=== PATIENT | male | born 1990 | race Caucasian/White ===

== ENCOUNTER 2017-07-22 09:26 | Inpatient (IN) | payer MEDICAID ==
[2017-07-22] MEDS ORDERED: Ondansetron 4 MG/2 ML SDV IV PRN (11:01)
[2017-07-22] MEDS ORDERED: Ondansetron 4 MG Tab.DIS PO PRN (11:01)
[2017-07-22] MEDS ORDERED: Sodium Chloride 0.9% 10 ML Syringe FLUSH PRN (11:01)
[2017-07-22] MEDS: methylPREDNISolone Sodium Succinate 125 MG/2 ML SDV IVPUSH SCH ×2 (11:25→19:44)
[2017-07-22] MEDS: Enoxaparin 40 MG/0.4 ML Syringe SUBCUT SCH (11:25)
[2017-07-22 11:42] LABS: CHLORIDE,CL 103 mEq/L (98-106); SODIUM,NA 140 mEq/L (136-145)
[2017-07-22] MEDS: Clindamycin Phosphate in D5W 300 MG in Premix Bag 1 BAG IV SCH ×4 (12:14→18:52)
[2017-07-22] MEDS: carBAMazepine 200 MG Tab PO SCH ×2 (12:18→19:45)
[2017-07-22] MEDS: Ciprofloxacin 0.3% Ophth Soln 2.5 ML Bottle EYERT SCH ×2 (12:39→19:44)
[2017-07-22] MEDS: Acetaminophen 325 MG Tab PO PRN ×2 (16:18→20:15)
[2017-07-22] MEDS ORDERED: Calcium Carbonate/Vitamin D3 1250 MG-200 Unit Tab PO SCH (17:30)
[2017-07-22] MEDS: Ibuprofen 200 MG Tab PO PRN (18:52)
--- NOTE | 2017-07-22 18:53 | EDM.PDOC ---
ED HPI GENERAL MEDICAL PROBLEM - General Chief Complaint: General Stated Complaint: SWOLLEN FACE AND TEMP Time Seen by Provider: 07/22/17 09:35 Source of Information: Reports: Family, Other ([address] [place] [address] nurse) History Limitations: Reports: Language Barrier (patient has developmental disabilities) - History of Present Illness INITIAL COMMENTS - FREE TEXT/NARRATIVE: Patient presents to ER with family and [address] [place] [address] nurse with concerns of redness and swelling to face getting worse. Family relates he was seen by Juanjo Vanegas on Thursday and at that time, he only had lip swelling and mild swelling in the right cheek. Was given an injection and started on prednisone. Patient awoke this am with far more swelling and redness. The lips are larger and now there is significant redness and swelling around his right eye. Patient has not had any breathing difficulties. Has been eating and drinking well. Low grade fevers. Patient does not converse but is alert and attentive. Onset: Gradual Duration: Day(s):, Getting Worse Location: Reports: Face Severity: Moderate Treatments [employer]: Reports: Other Medication(s) Other Treatments [employer]: prednisone - Related Data Allergies Allergy/AdvReac Type Severity Reaction Status Date / Time latex Allergy Cannot Verified 07/22/17 09:42 Remember midazolam [From Versed] Allergy Cannot Verified 07/22/17 09:42 Remember tape Allergy Rash Uncoded 07/22/17 09:42 Home Meds: Home Meds Aloe Vera/Sodium Chloride [[place] Saline Nasal Gel] 1 spray NASBOTH BID PRN [History] Ascorbic Acid [Vitamin C] 250 mg PO DAILY 09/13/16 [History] Calcium Carb & Citrate/Vit D3 [Calcium + D3 ER Tablet] 600 mg PO BID 09/13/16 [ History] Clindamycin Phos/Benzoyl Perox [Clindamycin-Benzoyl Perox 1-5%] 1 applic TOP DAILY PRN 09/13/16 [History] Iron Ps Cmplx/Vit B12/Fa [Ferrex 150 Forte Capsule] 150 mg PO DAILY 09/13/16 [ History] Multivitamin with Minerals [Multiple Vitamin] 1 tab PO DAILY 09/13/16 [History] carBAMazepine [Carbamazepine] 100 mg PO 1200 09/13/16 [History] carBAMazepine [Carbamazepine] 150 mg PO QPM 09/13/16 [History] carBAMazepine [Carbamazepine] 200 mg PO QAM 09/13/16 [History] [place]/Min Oil/Deepa/Wool Alcoh [Eucerin Creme] 1 applic TOP BID 07/22/17 [ History] Julius Med Sinus Rinse 30 ml HEYDI BID 07/22/17 [History] Prednisone [IMW: predniSONE] 40 mg PO DAILY 07/22/17 [History] Past Medical History HEENT History: Reports: Impaired Vision Cardiovascular History: Reports: Other (See Below) Other Cardiovascular History: LYMPHEDEMA OF LOWER EXTREMITIES Neurological History: Reports: Cerebral Palsy, Seizure Psychiatric History: Reports: ADHD, Other (See Below) Other Psychiatric History: JOLEEN-MCDERMID SYNDROME, MODERATE MILD RETARDATION, HIGH PAIN TOLERANCE Endocrine/Metabolic History: Reports: Osteoporosis Social & Family History - Family History Family Medical History: Noncontributory - Tobacco Use Smoking Status *Q: Never Smoker - Caffeine Use Caffeine Use: Reports: Soda - Recreational Drug Use Recreational Drug Use: No ED ROS GENERAL - Review of Systems Review Of Systems: See Below Constitutional: Reports: Fever. Denies: Decreased Appetite HEENT: Reports: Other (fac) Respiratory: Denies: Shortness of Breath, Wheezing Cardiovascular: Denies: Edema Endocrine: Reports: No Symptoms GI/Abdominal: Reports: No Symptoms (Facial lip swelling and redness) Skin: Reports: Erythema ED EXAM, GENERAL - Physical Exam Exam: See Below Exam Limited By: Other (patient cooperative with exam) General Appearance: Alert, No Apparent Distress Ears: Normal External Exam Nose: Normal Inspection, Normal Mucosa, No Blood Throat/Mouth: Normal Inspection, Normal Oropharynx, No Airway Compromise Head: Normocephalic, Facial Swelling, Other (Patient has significant facial swelling on the right, redness to right eye, swelling to upper and lower lid. Angioedema noted.) Respiratory/Chest: No Respiratory Distress, Lungs Clear, Normal Breath Sounds Cardiovascular: Regular Rate, Rhythm GI/Abdominal: Normal Bowel Sounds, Soft, Non-Tender Extremities: Normal Inspection, No Pedal Edema Neurological: Alert Skin Exam: Erythema Course - Vital Signs Last Recorded V/S: Last Vital Signs Temp 99.9 F 07/22/17 12:00 Pulse 95 07/22/17 12:00 Resp 19 07/22/17 12:00 BP 124/69 07/22/17 12:00 Pulse Ox 95 07/22/17 12:00 - Orders/Labs/Meds Orders: Active Orders 24 hr Category Date Time Status Patient Status [ADT] Routine ADT 07/22/17 11:01 Active Oxygen Therapy [RC] .PRN Care 07/22/17 11:01 Active Up With Assistance [RC] .PRN Care 07/22/17 11:01 Active Vital Signs [RC] 0000,0400,0800,1200,1600,2000 Care 07/22/17 11:01 Active Regular Diet [DIET] Diet 07/22/17 Lunch Active CULTURE BLOOD [BC] Stat Lab 07/22/17 11:15 Received CULTURE BLOOD [BC] Stat Lab 07/22/17 11:15 Received Acetaminophen [Tylenol] Med 07/22/17 11:01 Active 650 mg PO Q4H PRN Calcium Carbonate/Vitamin D3 [Calcium Carbonate/Vitamin Med 07/22/17 17:30 Active D 1250 MG-200 Unit] 500 tab PO BIDMEALS Clindamycin Phosphate in D5W [Cleocin in D5W] 300 mg Med 07/22/17 12:00 Active Premix Bag 1 bag IV Q6H Enoxaparin [Lovenox] Med 07/22/17 08:00 Active 40 mg SUBCUT Q24H Iron Polysaccharides Complex [Ferrex 150] Med 07/23/17 08:00 Active 150 mg PO DAILY Multivitamins [Tab-A-Zachery] Med 07/23/17 08:00 Active 1 tab PO DAILY Ondansetron [Zofran ODT] Med 07/22/17 11:01 Active 4 mg PO Q4H PRN Ondansetron [Zofran] Med 07/22/17 11:01 Active 4 mg IV Q4H PRN Sodium Chloride 0.9% [Saline Flush] Med 07/22/17 11:01 Active 10 ml FLUSH ASDIRECTED PRN Vancomycin Pharmacy to Dose [Pharmacy to Dose - Med 07/22/17 11:00 Pending Vancomycin] 1 dose .XX ASDIRECTED carBAMazepine [TEGretol Tab] Med 07/22/17 12:00 Active 100 mg PO 1200 carBAMazepine [TEGretol Tab] Med 07/22/17 20:00 Active 150 mg PO QPM carBAMazepine [TEGretol Tab] Med 07/23/17 08:00 Active 200 mg PO QAM methylPREDNISolone Sod Succ [Solu-MEDROL] Med 07/22/17 08:00 Active 62.5 mg IVPUSH Q12H Blood Culture x2 Reflex Set [OM.PC] Stat Oth 07/22/17 11:01 Ordered Saline Lock Insert [OM.PC] Routine Oth 07/22/17 11:01 Ordered Resuscitation Status Routine Resus Stat 07/22/17 10:33 Ordered Medication Orders Acetaminophen (Tylenol) 650 mg PO Q4H PRN PRN Reason: Pain (Mild 1-3)/fever Last Admin: 07/22/17 16:18 Dose: 650 mg Calcium Carbonate (Calcium Carbonate/Vitamin D 1250 Mg-200 Unit) 500 tab PO BIDMEALS [facility] Carbamazepine (Tegretol Tab) 100 mg PO 1200 [facility] Last Admin: 07/22/17 12:18 Dose: 100 mg Carbamazepine (Tegretol Tab) 150 mg PO QPM [facility] Carbamazepine (Tegretol Tab) 200 mg PO QAM [facility] Ciprofloxacin (Ciloxan 0.3% Ophth Soln) 0 ml EYERT TID [facility] Last Admin: 07/22/17 12:39 Dose: 3 drop Enoxaparin Sodium (Lovenox) 40 mg SUBCUT Q24H [facility] Last Admin: 07/22/17 11:25 Dose: 40 mg Clindamycin Phosphate 300 mg/ (Premix) 50 mls @ 100 mls/hr IV Q6H [facility] Last Admin: 07/22/17 12:14 Dose: 100 mls/hr Vancomycin HCl 1 gm/ Sodium (Chloride) 250 mls @ 167 mls/hr IV Q12H [facility] Ibuprofen (Motrin) 400 mg PO Q6H PRN PRN Reason: Fever Methylprednisolone Sodium Succinate (Solu-Medrol) 62.5 mg IVPUSH Q12H [facility] Last Admin: 07/22/17 11:25 Dose: 62.5 mg Multivitamins/Minerals/Vitamin C (Tab-A-Zachery) 1 tab PO DAILY [facility] Ondansetron HCl (Zofran Odt) 4 mg PO Q4H PRN PRN Reason: nausea, able to take PO Ondansetron HCl (Zofran) 4 mg IV Q4H PRN PRN Reason: Nausea/Vomiting Polysaccharide Iron Complex (Ferrex 150) 150 mg PO DAILY [facility] Sodium Chloride (Saline Flush) 10 ml FLUSH ASDIRECTED PRN PRN Reason: Keep Vein Open Vancomycin HCl (Pharmacy To Dose - Vancomycin) 1 dose .XX ASDIRECTED [facility] Meds: Medications Generic Name Dose Route Start Last Admin Trade Name Freq PRN Reason Stop Dose Admin Acetaminophen 650 mg 07/22/17 11:01 07/22/17 16:18 Tylenol PO 650 mg Q4H PRN Administration Pain (Mild 1-3)/fever Calcium Carbonate 500 tab 07/22/17 17:30 Calcium Carbonate/Vitamin D 1250 Mg-200 Unit PO BIDMEALS [facility] Carbamazepine 100 mg 07/22/17 12:00 07/22/17 12:18 Tegretol Tab PO 100 mg 1200 [facility] Administration Carbamazepine 150 mg 07/22/17 20:00 Tegretol Tab PO QPM [facility] Carbamazepine 200 mg 07/23/17 08:00 Tegretol Tab PO QAM [facility] Ciprofloxacin 0 ml 07/22/17 12:00 07/22/17 12:39 Ciloxan 0.3% Ophth Soln EYERT 3 drop TID [facility] Administration Enoxaparin Sodium 40 mg 07/22/17 08:00 07/22/17 11:25 Lovenox SUBCUT 40 mg Q24H [facility] Administration Clindamycin Phosphate 300 mg/ 50 mls @ 100 mls/hr 07/22/17 12:00 07/22/17 12: 14 Premix IV 100 mls/hr Q6H [facility] Administration Vancomycin HCl 1 gm/ Sodium 250 mls @ 167 mls/hr 07/22/17 20:00 Chloride IV Q12H [facility] Ibuprofen 400 mg 07/22/17 18:25 Motrin PO Q6H PRN Fever Methylprednisolone Sodium Succinate 62.5 mg 07/22/17 08:00 07/22/17 11:25 Solu-Medrol IVPUSH 62.5 mg Q12H [facility] Administration Multivitamins/Minerals/Vitamin C 1 tab 07/23/17 08:00 Tab-A-Zachery PO DAILY [facility] Ondansetron HCl 4 mg 07/22/17 11:01 Zofran Odt PO Q4H PRN nausea, able to take PO Ondansetron HCl 4 mg 07/22/17 11:01 Zofran IV Q4H PRN Nausea/Vomiting Polysaccharide Iron Complex 150 mg 07/23/17 08:00 Ferrex 150 PO DAILY [facility] Sodium Chloride 10 ml 07/22/17 11:01 Saline Flush FLUSH ASDIRECTED PRN Keep Vein Open Vancomycin HCl 1 dose 07/22/17 11:00 Pharmacy To Dose - Vancomycin .XX ASDIRECTED EYAD Discontinued Medications Generic Name Dose Route Start Last Admin Trade Name Freq PRN Reason Stop Dose Admin Vancomycin HCl 1,000 mg/ 250 mls @ 167 mls/hr 07/22/17 11:00 07/22/17 11:25 Sodium Chloride IV 07/22/17 12:29 167 mls/hr ONETIME ONE Administration Departure - Departure Time of Disposition: 11:00 Disposition: Admitted As Inpatient 65 Condition: Fair Clinical Impression: Cellulitis and abscess of face - Discharge Information - Problem List & Annotations (1) Cellulitis and abscess of face SNOMED Code(s): 700900106 Code(s): L03.211 - CELLULITIS OF FACE; L02.01 - CUTANEOUS ABSCESS OF FACE Status: Acute Priority: High Current Visit: Yes - Problem List Review Problem List Initiated/Reviewed/Updated: Yes - My Orders Last 24 Hours: My Active Orders 07/22/17 08:00 Enoxaparin [Lovenox] 40 mg SUBCUT Q24H methylPREDNISolone Sod Succ [Solu-MEDROL] 62.5 mg IVPUSH Q12H 07/22/17 10:33 Resuscitation Status Routine 07/22/17 11:00 Vancomycin Pharmacy to Dose [Pharmacy to Dose - Vancomycin] 1 dose .XX ASDIRECTED 07/22/17 11:01 Patient Status [ADT] Routine Oxygen Therapy [RC] .PRN Up With Assistance [RC] .PRN Vital Signs [RC] 0000,0400,0800,1200,1600,2000 Acetaminophen [Tylenol] 650 mg PO Q4H PRN Ondansetron [Zofran ODT] 4 mg PO Q4H PRN Ondansetron [Zofran] 4 mg IV Q4H PRN Sodium Chloride 0.9% [Saline Flush] 10 ml FLUSH ASDIRECTED PRN Blood Culture x2 Reflex Set [OM.PC] Stat Saline Lock Insert [OM.PC] Routine 07/22/17 11:15 CULTURE BLOOD [BC] Stat CULTURE BLOOD [BC] Stat 07/22/17 12:00 Clindamycin Phosphate in D5W [Cleocin in D5W] 300 mg Premix Bag 1 bag IV Q6H carBAMazepine [TEGretol Tab] 100 mg PO 1200 07/22/17 17:30 Calcium Carbonate/Vitamin D3 [Calcium Carbonate/Vitamin D 1250 MG-200 Unit] 500 tab PO BIDMEALS 07/22/17 20:00 carBAMazepine [TEGretol Tab] 150 mg PO QPM 07/22/17 Lunch Regular Diet [DIET] 07/23/17 08:00 Iron Polysaccharides Complex [Ferrex 150] 150 mg PO DAILY Multivitamins [Tab-A-Zachery] 1 tab PO DAILY carBAMazepine [TEGretol Tab] 200 mg PO QAM - Assessment/Plan Admission H&P: Please use this note as an admission H&P Last 24 Hours: My Active Orders 07/22/17 08:00 Enoxaparin [Lovenox] 40 mg SUBCUT Q24H methylPREDNISolone Sod Succ [Solu-MEDROL] 62.5 mg IVPUSH Q12H 07/22/17 10:33 Resuscitation Status Routine 07/22/17 11:00 Vancomycin Pharmacy to Dose [Pharmacy to Dose - Vancomycin] 1 dose .XX ASDIRECTED 07/22/17 11:01 Patient Status [ADT] Routine Oxygen Therapy [RC] .PRN Up With Assistance [RC] .PRN Vital Signs [RC] 0000,0400,0800,1200,1600,2000 Acetaminophen [Tylenol] 650 mg PO Q4H PRN Ondansetron [Zofran ODT] 4 mg PO Q4H PRN Ondansetron [Zofran] 4 mg IV Q4H PRN Sodium Chloride 0.9% [Saline Flush] 10 ml FLUSH ASDIRECTED PRN Blood Culture x2 Reflex Set [OM.PC] Stat Saline Lock Insert [OM.PC] Routine 07/22/17 11:15 CULTURE BLOOD [BC] Stat CULTURE BLOOD [BC] Stat 07/22/17 12:00 Clindamycin Phosphate in D5W [Cleocin in D5W] 300 mg Premix Bag 1 bag IV Q6H carBAMazepine [TEGretol Tab] 100 mg PO 1200 07/22/17 17:30 Calcium Carbonate/Vitamin D3 [Calcium Carbonate/Vitamin D 1250 MG-200 Unit] 500 tab PO BIDMEALS 07/22/17 20:00 carBAMazepine [TEGretol Tab] 150 mg PO QPM 07/22/17 Lunch Regular Diet [DIET] 07/23/17 08:00 Iron Polysaccharides Complex [Ferrex 150] 150 mg PO DAILY Multivitamins [Tab-A-Zachery] 1 tab PO DAILY carBAMazepine [TEGretol Tab] 200 mg PO QAM Assessment:: Facial cellultis Plan: Patient will be admitted to Acute inpatient for IV antibiotics and steroids. Will obtain lab, blood cultures and a culture from the eye as able. Dr. Yen also in to see patient as well and agrees with plan.
[2017-07-23] MEDS: Clindamycin Phosphate in D5W 300 MG in Premix Bag 1 BAG IV SCH ×10 (00:03→23:41)
[2017-07-23] MEDS: methylPREDNISolone Sodium Succinate 125 MG/2 ML SDV IVPUSH SCH ×2 (07:44→19:51)
[2017-07-23] MEDS: Enoxaparin 40 MG/0.4 ML Syringe SUBCUT SCH (07:44)
[2017-07-23] MEDS: Iron Polysaccharides Complex 150 MG Cap PO SCH (07:45)
[2017-07-23] MEDS: Multivitamin Tab PO SCH (07:45)
[2017-07-23] MEDS: carBAMazepine 200 MG Tab PO SCH ×3 (07:45→19:58)
[2017-07-23] MEDS: Calcium Carbonate/Vitamin D3 1250 MG-200 Unit Tab PO SCH ×2 (07:48→17:35)
[2017-07-23] MEDS: Ciprofloxacin 0.3% Ophth Soln 2.5 ML Bottle EYERT SCH ×3 (07:48→19:56)
[2017-07-23 09:04] LABS: CHLORIDE,CL 104 mEq/L (98-106); SODIUM,NA 141 mEq/L (136-145)
--- NOTE | 2017-07-23 09:12 | PCM.PN ---
- General Info Date of Service: 07/23/17 Admission Dx/Problem (Free Text): Facial Cellulitis Functional Status: Reports: Pain Controlled (does not appear to be in distress) , Tolerating Diet, Ambulating - Review of Systems General: Reports: Fever Pulmonary: Denies: Shortness of Breath Cardiovascular: Denies: Edema Gastrointestinal: Denies: Decreased Appetite Genitourinary: Reports: Incontinence Skin: Reports: Other (redness to right eye much improved.) Neurological: Reports: Other (developmental disability) - Patient Data Vitals - Most Recent: Last Vital Signs Temp 98.0 F 07/23/17 07:46 Pulse 84 07/23/17 07:46 Resp 20 07/23/17 07:46 BP 134/77 07/23/17 07:46 Pulse Ox 100 07/23/17 07:46 Weight - Most Recent: 166 lb I&O - Last 24 Hours: Intake & Output 07/22/17 07/23/17 07/23/17 22:59 06:59 14:59 Intake Total 50 50 Balance 50 50 Lab Results Last 24 Hours: Laboratory Results - last 24 hr 07/22/17 07/23/17 Range/Units 11:15 08:45 WBC 12.2 H (5.0-10.0) 10^3/uL RBC 4.62 (4.50-6.00) 10^6/uL Hgb 13.0 L (14.0-18.0) g/dL Hct 40.3 (40.0-54.0) % MCV 87.2 (82.0-94.0) fL MCH 28.1 (27.0-32.0) pg MCHC 32.3 L (33.0-38.0) g/dL RDW Coeff of Korey 13.5 (11.0-15.0) % Plt Count 213 (150-400) 10^3/uL Neut % (Auto) 81.4 (35-85) % Lymph % (Auto) 9.7 L (10-55) % [place] % (Auto) 8.8 (0-16) % Eos % (Auto) 0 (0-5) % Baso % (Auto) 0.1 (0-3) % Neut # (Auto) 9.93 H (1.80-7.00) 10^3/uL Lymph # (Auto) 1.19 (1.00-4.80) 10^3/uL [place] # (Auto) 1.08 H (0.00-0.80) 10^3/uL Eos # (Auto) 0.00 (0.00-0.45) 10^3/uL Baso # (Auto) 0.01 10^3/uL Sodium 140 (136-145) mEq/L Potassium 4.0 (3.5-5.0) mEq/L Chloride 103 (98-106) mEq/L Carbon Dioxide 30 (21-32) mmol/L BUN 11 (7-18) mg/dL Creatinine 0.9 (0.7-1.3) mg/dL Est Cr Clr Drug Dosing 111.26 mL/min Estimated GFR (MDRD) > 60 (>=60) mL/min Glucose 131 H D (75-99) mg/dL Calcium 9.0 (8.4-10.1) mg/dL Total Bilirubin 0.3 (0.0-1.0) mg/dL AST 16 (15-37) U/L ALT 28 (12-78) U/L Alkaline Phosphatase 102 (46-116) U/L C-Reactive Protein 11.4 H (0.2-0.8) mg/dL Total Protein 7.9 (6.4-8.2) g/dL Albumin 3.8 (3.4-5.0) g/dL Med Orders - Current: Current Medications Acetaminophen (Tylenol) 650 mg PO Q4H PRN PRN Reason: Pain (Mild 1-3)/fever Last Admin: 07/22/17 20:15 Dose: 650 mg Calcium Carbonate (Calcium Carbonate/Vitamin D 1250 Mg-200 Unit) 1 tab PO BIDMEALS [facility] Last Admin: 07/23/17 07:48 Dose: 1 tab Carbamazepine (Tegretol Tab) 100 mg PO 1200 [facility] Last Admin: 07/22/17 12:18 Dose: 100 mg Carbamazepine (Tegretol Tab) 150 mg PO QPM [facility] Last Admin: 07/22/17 19:45 Dose: 150 mg Carbamazepine (Tegretol Tab) 200 mg PO QAM [facility] Last Admin: 07/23/17 07:45 Dose: 200 mg Ciprofloxacin (Ciloxan 0.3% Ophth Soln) 0 ml EYERT TID [facility] Last Admin: 07/23/17 07:48 Dose: 3 drop Enoxaparin Sodium (Lovenox) 40 mg SUBCUT Q24H [facility] Last Admin: 07/23/17 07:44 Dose: 40 mg Clindamycin Phosphate 300 mg/ (Premix) 50 mls @ 100 mls/hr IV Q6H [facility] Last Admin: 07/23/17 05:48 Dose: 100 mls/hr Vancomycin HCl 1 gm/ Sodium (Chloride) 250 mls @ 167 mls/hr IV Q12H [facility] Last Admin: 07/23/17 08:10 Dose: 167 mls/hr Ibuprofen (Motrin) 400 mg PO Q6H PRN PRN Reason: Fever Last Admin: 07/22/17 18:52 Dose: 400 mg Methylprednisolone Sodium Succinate (Solu-Medrol) 62.5 mg IVPUSH Q12H [facility] Last Admin: 07/23/17 07:44 Dose: 62.5 mg Multivitamins/Minerals/Vitamin C (Tab-A-Zachery) 1 tab PO DAILY [facility] Last Admin: 07/23/17 07:45 Dose: 1 tab Ondansetron HCl (Zofran Odt) 4 mg PO Q4H PRN PRN Reason: nausea, able to take PO Ondansetron HCl (Zofran) 4 mg IV Q4H PRN PRN Reason: Nausea/Vomiting Polysaccharide Iron Complex (Ferrex 150) 150 mg PO DAILY [facility] Last Admin: 07/23/17 07:45 Dose: 150 mg Sodium Chloride (Saline Flush) 10 ml FLUSH ASDIRECTED PRN PRN Reason: Keep Vein Open Vancomycin HCl (Pharmacy To Dose - Vancomycin) 1 dose .XX ASDIRECTED [facility] Discontinued Medications Calcium Carbonate (Calcium Carbonate/Vitamin D 1250 Mg-200 Unit) 500 tab PO BIDMEALS [facility] Last Admin: 07/22/17 18:52 Dose: 500 tab Vancomycin HCl 1,000 mg/ (Sodium Chloride) 250 mls @ 167 mls/hr IV ONETIME ONE Stop: 07/22/17 12:29 Last Admin: 07/22/17 11:25 Dose: 167 mls/hr - Exam General: Alert Neck: Supple Lungs: Clear to Auscultation, Normal Respiratory Effort Cardiovascular: Regular Rate, Regular Rhythm GI/Abdominal Exam: Normal Bowel Sounds, Soft, Non-Tender Extremities: Normal Inspection, No Pedal Edema Skin: Other (redness to eye much improved, swelling improved. Still has swelling of upper lip but overall significant improvement from yesterday) Wound/Incisions: Erythema Improving Neurological: No New Focal Deficit Psy/Mental Status: Alert, Normal Affect, Normal Mood - Problem List & Annotations (1) Cellulitis and abscess of face SNOMED Code(s): 565150228 Code(s): L03.211 - CELLULITIS OF FACE; L02.01 - CUTANEOUS ABSCESS OF FACE Status: Acute Priority: High Current Visit: Yes - Problem List Review Problem List Initiated/Reviewed/Updated: Yes - My Orders Last 24 Hours: My Active Orders 07/22/17 12:00 Ciprofloxacin [Ciloxan 0.3% Ophth Soln] See Dose Instructions EYERT TID 07/22/17 18:25 Ibuprofen [Motrin] 400 mg PO Q6H PRN 07/22/17 20:00 Vancomycin 1 gm Sodium Chloride 0.9% [Normal Saline] 250 ml IV Q12H 07/23/17 08:00 Calcium Carbonate/Vitamin D3 [Calcium Carbonate/Vitamin D 1250 MG-200 Unit] 1 tab PO BIDMEALS 07/23/17 08:45 BASIC METABOLIC PANEL,BMP [CHEM] Stat C-REACTIVE PROTEIN [CHEM] Stat 07/24/17 08:00 CREATININE W/GFR [CHEM] Routine VANCOMYCIN TROUGH [CHEM] Timed - Assessment Assessment:: Facial Cellulitis - Plan Plan:: Patient much improved today. Redness and swelling better. Did spike fevers last night of 102.2. Eating well. Ambulating. Has been cooperative. Labs show slight elevation of WBC to 12.2. CRP 11.0. BMP stable. Will continue with IV Vanco and Cleocin, Solu Medrol. Repeat labs in am. Possible discharge back to the correction tomorrow on oral medications.
[2017-07-23] MEDS: Acetaminophen 325 MG Tab PO PRN (19:59)
[2017-07-23] MEDS: Ibuprofen 200 MG Tab PO PRN (23:42)
[2017-07-24] MEDS: Clindamycin Phosphate in D5W 300 MG in Premix Bag 1 BAG IV SCH ×2 (06:22)
[2017-07-24] MEDS: Calcium Carbonate/Vitamin D3 1250 MG-200 Unit Tab PO SCH (07:45)
[2017-07-24] MEDS: Iron Polysaccharides Complex 150 MG Cap PO SCH (07:46)
[2017-07-24] MEDS: carBAMazepine 200 MG Tab PO SCH ×2 (07:46→11:08)
[2017-07-24] MEDS: Ciprofloxacin 0.3% Ophth Soln 2.5 ML Bottle EYERT SCH (07:46)
[2017-07-24] MEDS: Multivitamin Tab PO SCH (07:46)
[2017-07-24] MEDS: Enoxaparin 40 MG/0.4 ML Syringe SUBCUT SCH (07:59)
[2017-07-24] MEDS: methylPREDNISolone Sodium Succinate 125 MG/2 ML SDV IVPUSH SCH (07:59)
[2017-07-24 09:05] VITALS: BP 130/79
--- NOTE | 2017-07-27 08:39 | DISCH ---
ADMISSION DIAGNOSIS: Facial cellulitis. DISCHARGE DIAGNOSIS: FACIAL CELLULITIS. HISTORY: The patient is a 26-year-old male, mentally handicapped who lives in a long term environment. He presented with right-sided facial edema, erythema, in and around the mouth and eye with elevated fevers. Ary Rodriguez evaluated in the emergency room. At that time, his white count was elevated. CRP was over 11 and he was admitted for cellulitis. HOSPITAL COURSE: The patient was given Cleocin and vancomycin. He did spike some temps for the 1st 24 hours but for the most part now, over the last 24 hours, he has been afebrile. Thus far blood cultures are negative as is a culture from some drainage from his right eye. His lab work shows him to have a white count down now to 6.6 and a CRP at admit 11.4, is now at 6.6. He clinically looks well. All of his facial swelling is essentially resolved and I can feel or see no further erythema. We are going to discharge him home on seven more days of oral Cleocin and five more days of low-dose oral prednisone. He will follow up with his primary, Ary Rodriguez in the clinic next week in [place] for a recheck. COMPLICATIONS: None. CONSULTATIONS: None. DISPOSITION: Discharged to home. NOHEMI /[id number]
== END 2017-07-24 11:50 | disposition home or self-care (01) | DRG 603 ==
LOC: CC.ED 09:26 → CC.MS 10:03 → UNDOADMIN 10:03 → CC.MS 11:01
PROVIDERS: ADMIT Physician Assistant Medical; ATTEND Family Medicine
DX: L03.211 Cellulitis of face (principal); L02.01 Cutaneous abscess of face; R50.9 Fever, unspecified; G80.9 Cerebral palsy, unspecified; F90.9 Attention-deficit hyperactivity disorder, unspecified type; Q99.8 Other specified chromosome abnormalities; F71 Moderate intellectual disabilities; Z91.040 Latex allergy status; Z88.8 Allergy status to other drugs, medicaments and biological substances; Z79.899 Other long term (current) drug therapy
CPT/HCPCS: 36415; 80048; 80053; 80202; 82565; 85025; 86140; 87040; 87070; 99282; A9270-GY; J1650; J2930; J3370; J7050

== ENCOUNTER 2017-11-16 18:09 | Inpatient (IN) | payer MEDICAID ==
[2017-11-16] MEDS ORDERED: Ibuprofen 200 MG Tab PO ONE (18:25)
--- NOTE | 2017-11-16 18:31 | EDM.PDOC ---
ED HPI GENERAL MEDICAL PROBLEM - General Chief Complaint: Fever Stated Complaint: FEVER, COUGH, NASAL DRAINAGE Time Seen by Provider: 11/16/17 18:20 Source of Information: Reports: Family, Other (4th [facility] Caregiver) - History of Present Illness INITIAL COMMENTS - FREE TEXT/NARRATIVE: Evan is a 27 year old male mentally handicap young gentleman who presents to the ED with complaints of fever, nasal congestion, and cough. Staff from his long-term report that he has had intermittent fever starting Thursday. They report that this evening they are unable to keep it down with alternating Tylenol and ibuprofen. They report that today his fever got as high as 103 deg F after Tylenol administration. He last had Tylenol at 1630. They report since Thursday he has been taking OTC cold and cough medications without relief. He has had purulent nasal drainage. Cough has been nonproductive. They report he has had a decreased appetite and is not wanting to drink much for fluids. Patent is nonverbal so ROS difficult to obtain. Caregiver denies any obvious abdominal pain, urinary issues, diarrhea, shortness of breath, difficulty breathing. Family does report that he finished a course of antibiotics for an abscessed right eye tooth on 11/09/2017. This was prescribed by his dentist. Onset Date: 11/14/17 Duration: Getting Worse Improves with: Reports: Medication Associated Symptoms: Reports: Cough, Fever/Chills, Weakness. Denies: Confusion , Chest Pain, cough w sputum, Diaphoresis, Headaches, Loss of Appetite, Nausea/ Vomiting, Rash, Seizure, Shortness of Breath, Syncope Treatments VETERINARY BACTERIOLOGIST: Reports: Acetaminophen, NSAIDS, Other Medication(s) ( decongestants) - Related Data Allergies Allergy/AdvReac Type Severity Reaction Status Date / Time latex Allergy Cannot Verified 11/16/17 18:10 Remember midazolam [From Versed] Allergy Cannot Verified 11/16/17 18:10 Remember tape Allergy Rash Uncoded 11/16/17 18:10 Home Meds: Home Meds Aloe Vera/Sodium Chloride [[place] Saline Nasal Gel] 1 spray NASBOTH BID PRN [History] Ascorbic Acid [Vitamin C] 250 mg PO DAILY 09/13/16 [History] Calcium Carb & Citrate/Vit D3 [Calcium + D3 ER Tablet] 600 mg PO BID 09/13/16 [ History] Iron Ps Cmplx/Vit B12/Fa [Ferrex 150 Forte Capsule] 150 mg PO DAILY 09/13/16 [ History] Multivitamin with Minerals [Multiple Vitamin] 1 tab PO DAILY 09/13/16 [History] carBAMazepine [Carbamazepine] 100 mg PO 1200 09/13/16 [History] carBAMazepine [Carbamazepine] 150 mg PO QPM 09/13/16 [History] carBAMazepine [Carbamazepine] 200 mg PO QAM 09/13/16 [History] Julius Med Sinus Rinse 30 ml HEYDI BID 07/22/17 [History] Past Medical History HEENT History: Reports: Impaired Vision Cardiovascular History: Reports: Other (See Below) Other Cardiovascular History: LYMPHEDEMA OF LOWER EXTREMITIES Neurological History: Reports: Cerebral Palsy, Seizure Psychiatric History: Reports: ADHD, Other (See Below) Other Psychiatric History: JOLEEN-MCDERMID SYNDROME, MODERATE MILD RETARDATION, HIGH PAIN TOLERANCE Endocrine/Metabolic History: Reports: Osteoporosis Social & Family History - Family History Family Medical History: Noncontributory - Tobacco Use Smoking Status *Q: Never Smoker - Caffeine Use Caffeine Use: Reports: Soda - Recreational Drug Use Recreational Drug Use: No ED ROS GENERAL - Review of Systems Review Of Systems: See Below Constitutional: Reports: Fever, Weakness, Decreased Appetite HEENT: Reports: Rhinitis, Sinus Problem Respiratory: Reports: Cough. Denies: Wheezing, Sputum GI/Abdominal: Reports: Constipation, Decreased Appetite. Denies: Abdominal Pain , Black Stool, Bloody Stool, Diarrhea, Vomiting : Reports: No Symptoms Skin: Reports: Other (flushed) Neurological: Reports: Pre-Existing Deficit (mentally handicap) Psychiatric: Reports: Anxiety ED EXAM, GENERAL - Physical Exam Exam: See Below Exam Limited By: Altered Mental Status General Appearance: Alert, WD/WN, Anxious, Moderate Distress Eye Exam: Bilateral Eye: PERRL Ears: Normal External Exam, Normal Canal, Hearing Grossly Normal, Normal TMs Nose: Nasal Swelling, Nasal Drainage. No: Nasal Flaring Throat/Mouth: Normal Inspection, Normal Lips, Normal Teeth, Normal Gums, Normal Oropharynx, Normal Voice, No Airway Compromise, Other (does have abscessed R eye tooth) Head: Atraumatic, Normocephalic Neck: Normal Inspection, Supple, Non-Tender, Full Range of Motion Respiratory/Chest: No Respiratory Distress, Lungs Clear, No Accessory Muscle Use Cardiovascular: Normal Peripheral Pulses, Regular Rate, Rhythm, No Edema, No Gallop, No JVD, No Murmur, No Rub GI/Abdominal: Normal Bowel Sounds, Soft, Non-Tender, No Organomegaly, No Distention, No Abnormal Bruit, No Mass Back Exam: Normal Inspection, Full Range of Motion, NT Extremities: Normal Range of Motion, Non-Tender, Normal Capillary Refill, Pedal Edema Neurological: Alert, CN II-XII Intact, Other (mentally handicap, nonverbal) Psychiatric: Anxious, Tearful Skin Exam: Other (flushed) Lymphatic: No Adenopathy Course - Vital Signs Last Recorded V/S: Last Vital Signs Temp 99.6 F 11/17/17 04:00 Pulse 90 11/17/17 04:00 Resp 20 11/17/17 04:00 BP 104/64 11/17/17 04:00 Pulse Ox 98 11/17/17 04:00 - Orders/Labs/Meds Orders: Active Orders 24 hr Category Date Time Status Patient Status [ADT] Routine ADT 11/16/17 20:30 Active Intake and Output [RC] 0630,1830 Care 11/16/17 20:30 Active Oxygen Therapy [RC] .PRN Care 11/16/17 20:30 Active Pulse Oximetry [RC] .PRN Care 11/16/17 20:30 Active RT Aerosol Therapy [RC] .PRN Care 11/16/17 20:30 Active Up With Assistance [RC] .PRN Care 11/16/17 20:30 Active Vital Signs [RC] 0000,0400,0800,1200,1600,2000 Care 11/16/17 20:30 Active Regular Diet [DIET] Diet 11/16/17 Dinner Active Chest 2V [CR] Stat Exams 11/16/17 18:23 Taken BASIC METABOLIC PANEL,BMP [CHEM] AM Lab 11/17/17 05:11 Ordered C-REACTIVE PROTEIN [CHEM] AM Lab 11/17/17 05:11 Ordered CBC WITH AUTO DIFF [HEME] AM Lab 11/17/17 05:11 Ordered CULTURE BLOOD [BC] Stat Lab 11/16/17 06:30 Received CULTURE BLOOD [BC] Stat Lab 11/16/17 06:35 Received Acetaminophen [Tylenol] Med 11/16/17 20:30 Active 650 mg PO Q4H PRN Albuterol/Ipratropium [DuoNeb 3.0-0.5 MG/3 ML] Med 11/16/17 20:30 Active 3 ml NEB Q4H PRN Docusate Sodium [Colace] Med 11/16/17 20:30 Active 100 mg PO BID PRN Ibuprofen [Motrin] Med 11/16/17 20:30 Active 600 mg PO Q6H PRN Magnesium Hydroxide [Milk of Magnesia] Med 11/16/17 20:30 Active 30 ml PO Q12H PRN Ondansetron [Zofran] Med 11/16/17 20:30 Active 4 mg IV Q6H PRN Oseltamivir [Tamiflu] Med 11/16/17 20:30 Active 75 mg PO BID Polyethylene Glycol 3350 [MiraLAX] Med 11/16/17 20:30 Active 17 gm PO DAILY PRN Sodium Chloride 0.9% [Normal Saline] 1,000 ml Med 11/16/17 19:30 Active IV ASDIRECTED Temazepam [Restoril] Med 11/16/17 20:30 Active 15 mg PO BEDTIME PRN carBAMazepine [TEGretol Tab] Med 11/17/17 12:00 Active 100 mg PO DAILY@1200 carBAMazepine [TEGretol Tab] Med 11/16/17 20:45 Active 150 mg PO QPM carBAMazepine [TEGretol Tab] Med 11/17/17 08:00 Active 200 mg PO QAM methylPREDNISolone Sod Succ [Solu-MEDROL] Med 11/16/17 20:00 Active 62.5 mg IVPUSH Q24H Blood Culture x2 Reflex Set [OM.PC] Stat Oth 11/16/17 18:23 Ordered Resuscitation Status Routine Resus Stat 11/16/17 19:27 Ordered Medication Orders Acetaminophen (Tylenol) 650 mg PO Q4H PRN PRN Reason: Pain (Mild 1-3)/fever Albuterol/Ipratropium (Duoneb 3.0-0.5 Mg/3 Ml) 3 ml NEB Q4H PRN PRN Reason: Shortness Of Breath/wheezing Carbamazepine (Tegretol Tab) 100 mg PO DAILY@1200 EYAD Carbamazepine (Tegretol Tab) 150 mg PO QPM EYAD Last Admin: 11/16/17 21:15 Dose: 150 mg Carbamazepine (Tegretol Tab) 200 mg PO QAM EYAD Docusate Sodium (Colace) 100 mg PO BID PRN PRN Reason: Constipation Sodium Chloride (Normal Saline) 1,000 mls @ 100 mls/hr IV ASDIRECTED [facility] Last Admin: 11/17/17 04:29 Dose: 100 mls/hr Infusion: 11/17/17 04:29 Dose: 100 mls/hr Admin: 11/16/17 20:15 Dose: 100 mls/hr Ibuprofen (Motrin) 600 mg PO Q6H PRN PRN Reason: Pain (mild 1-3) Magnesium Hydroxide (Milk Of Magnesia) 30 ml PO Q12H PRN PRN Reason: Constipation Methylprednisolone Sodium Succinate (Solu-Medrol) 62.5 mg IVPUSH Q24H [facility] Last Admin: 11/16/17 21:15 Dose: 62.5 mg Ondansetron HCl (Zofran) 4 mg IV Q6H PRN PRN Reason: Nausea/Vomiting Oseltamivir Phosphate (Tamiflu) 75 mg PO BID [facility] Stop: 11/21/17 20:31 Last Admin: 11/16/17 21:15 Dose: 75 mg Polyethylene Glycol (Miralax) 17 gm PO DAILY PRN PRN Reason: Constipation Temazepam (Restoril) 15 mg PO BEDTIME PRN PRN Reason: Sleep Labs: Laboratory Tests 11/16/17 11/16/17 11/16/17 Range/Units 06:30 06:30 06:35 WBC 4.5 L (5.0-10.0) 10^3/uL RBC 4.62 (4.50-6.00) 10^6/uL Hgb 13.3 L (14.0-18.0) g/dL Hct 38.8 L (40.0-54.0) % MCV 84.0 (82.0-94.0) fL MCH 28.8 (27.0-32.0) pg MCHC 34.3 (33.0-38.0) g/dL RDW Coeff of Korey 13.5 (11.0-15.0) % Plt Count 155 (150-400) 10^3/uL Neut % (Auto) 72.9 (35-85) % Lymph % (Auto) 8.0 L (10-55) % [place] % (Auto) 18.7 H (0-16) % Eos % (Auto) 0.2 (0-5) % Baso % (Auto) 0.2 (0-3) % Neut # (Auto) 3.27 (1.80-7.00) 10^3/uL Lymph # (Auto) 0.36 L (1.00-4.80) 10^3/uL [place] # (Auto) 0.84 H (0.00-0.80) 10^3/uL Eos # (Auto) 0.01 (0.00-0.45) 10^3/uL Baso # (Auto) 0.01 10^3/uL D-Dimer, Quantitative 0.19 (0.00-0.50) Sodium 137 (136-145) mEq/L Potassium 3.4 L (3.5-5.0) mEq/L Chloride 100 (98-106) mEq/L Carbon Dioxide 26 (21-32) mmol/L BUN 14 (7-18) mg/dL Creatinine 0.9 (0.7-1.3) mg/dL Est Cr Clr Drug Dosing 106.30 mL/min Estimated GFR (MDRD) > 60 (>=60) mL/min Glucose 113 H (75-99) mg/dL Calcium 9.0 (8.4-10.1) mg/dL Total Bilirubin 0.4 (0.0-1.0) mg/dL AST 29 (15-37) U/L ALT 32 (12-78) U/L Alkaline Phosphatase 100 (46-116) U/L C-Reactive Protein 17.2 H (0.2-0.8) mg/dL Total Protein 7.1 (6.4-8.2) g/dL Albumin 3.8 (3.4-5.0) g/dL Urine Color (YELLOW) Urine Appearance (CLEAR) Urine pH (4.5-8.0) Ur Specific [place] (1.003-1.020) Urine Protein (NEGATIVE) mg/dL Urine Glucose (UA) (NEGATIVE) mg/dL Urine Ketones (NEGATIVE) mg/dL Urine Occult Blood (NEGATIVE) Urine Nitrite (NEGATIVE) Urine Bilirubin (NEGATIVE) Urine Urobilinogen (0.2-1.0) EU/dL Ur Leukocyte Esterase (NEGATIVE) 11/16/17 Range/Units 19:15 WBC (5.0-10.0) 10^3/uL RBC (4.50-6.00) 10^6/uL Hgb (14.0-18.0) g/dL Hct (40.0-54.0) % MCV (82.0-94.0) fL MCH (27.0-32.0) pg MCHC (33.0-38.0) g/dL RDW Coeff of Korey (11.0-15.0) % Plt Count (150-400) 10^3/uL Neut % (Auto) (35-85) % Lymph % (Auto) (10-55) % [place] % (Auto) (0-16) % Eos % (Auto) (0-5) % Baso % (Auto) (0-3) % Neut # (Auto) (1.80-7.00) 10^3/uL Lymph # (Auto) (1.00-4.80) 10^3/uL [place] # (Auto) (0.00-0.80) 10^3/uL Eos # (Auto) (0.00-0.45) 10^3/uL Baso # (Auto) 10^3/uL D-Dimer, Quantitative (0.00-0.50) Sodium (136-145) mEq/L Potassium (3.5-5.0) mEq/L Chloride (98-106) mEq/L Carbon Dioxide (21-32) mmol/L BUN (7-18) mg/dL Creatinine (0.7-1.3) mg/dL Est Cr Clr Drug Dosing mL/min Estimated GFR (MDRD) (>=60) mL/min Glucose (75-99) mg/dL Calcium (8.4-10.1) mg/dL Total Bilirubin (0.0-1.0) mg/dL AST (15-37) U/L ALT (12-78) U/L Alkaline Phosphatase (46-116) U/L C-Reactive Protein (0.2-0.8) mg/dL Total Protein (6.4-8.2) g/dL Albumin (3.4-5.0) g/dL Urine Color Yellow (YELLOW) Urine Appearance Clear (CLEAR) Urine pH 8.5 H (4.5-8.0) Ur Specific [place] 1.015 (1.003-1.020) Urine Protein 30 H (NEGATIVE) mg/dL Urine Glucose (UA) Negative (NEGATIVE) mg/dL Urine Ketones 80 H (NEGATIVE) mg/dL Urine Occult Blood Negative (NEGATIVE) Urine Nitrite Negative (NEGATIVE) Urine Bilirubin Negative (NEGATIVE) Urine Urobilinogen 0.2 (0.2-1.0) EU/dL Ur Leukocyte Esterase Negative (NEGATIVE) Meds: Medications Generic Name Dose Route Start Last Admin Trade Name Freq PRN Reason Stop Dose Admin Acetaminophen 650 mg 11/16/17 20:30 Tylenol PO Q4H PRN Pain (Mild 1-3)/fever Albuterol/Ipratropium 3 ml 11/16/17 20:30 Duoneb 3.0-0.5 Mg/3 Ml NEB Q4H PRN Shortness Of Breath/wheezing Carbamazepine 100 mg 11/17/17 12:00 Tegretol Tab PO DAILY@1200 EYAD Carbamazepine 150 mg 11/16/17 20:45 11/16/17 21:15 Tegretol Tab PO 150 mg QPM EYAD Administration Carbamazepine 200 mg 11/17/17 08:00 Tegretol Tab PO QAM EYAD Docusate Sodium 100 mg 11/16/17 20:30 Colace PO BID PRN Constipation Sodium Chloride 1,000 mls @ 100 mls/hr 11/16/17 19:30 11/17/17 04:29 Normal Saline IV 100 mls/hr ASDIRECTED EYAD Administration Ibuprofen 600 mg 11/16/17 20:30 Motrin PO Q6H PRN Pain (mild 1-3) Magnesium Hydroxide 30 ml 11/16/17 20:30 Milk Of Magnesia PO Q12H PRN Constipation Methylprednisolone Sodium Succinate 62.5 mg 11/16/17 20:00 11/16/17 21:15 Solu-Medrol IVPUSH 62.5 mg Q24H EYAD Administration Ondansetron HCl 4 mg 11/16/17 20:30 Zofran IV Q6H PRN Nausea/Vomiting Oseltamivir Phosphate 75 mg 11/16/17 20:30 11/16/17 21:15 Tamiflu PO 11/21/17 20:31 75 mg BID EYAD Administration Polyethylene Glycol 17 gm 11/16/17 20:30 Miralax PO DAILY PRN Constipation Temazepam 15 mg 11/16/17 20:30 Restoril PO BEDTIME PRN Sleep Discontinued Medications Generic Name Dose Route Start Last Admin Trade Name Freq PRN Reason Stop Dose Admin Ibuprofen 600 mg 11/16/17 18:25 11/16/17 18:37 Motrin PO 11/16/17 18:26 600 mg ONETIME ONE Administration - Re-Assessments/Exams Free Text/Narrative Re-Assessment/Exam: 11/16/17 18:56 Unable to do influenza screen as test kits are unavailable. Discussed lab and CXR results with patient, long-term staff and grandmother. I do suspect he has influenza given low WBC count,cough and fever. After discussion of discharging home vs. staying in hospital, long-term staff recommend keeping him for IVF as he has been refusing to drink. We will admit to observation under Dr. Yen. Departure - Departure Time of Disposition: 19:22 Disposition: Refer to Observation Condition: Fair Clinical Impression: Influenza - Discharge Information - Problem List & Annotations (1) Influenza SNOMED Code(s): 9837015 Code(s): J11.1 - FLU DUE TO UNIDENTIFIED INFLUENZA VIRUS W OTH RESP MANIFEST Status: Acute Current Visit: Yes (2) Mental handicap SNOMED Code(s): 819467806 Code(s): F79 - UNSPECIFIED INTELLECTUAL DISABILITIES Status: Chronic Current Visit: Yes - Problem List Review Problem List Initiated/Reviewed/Updated: Yes - My Orders Last 24 Hours: My Active Orders 11/16/17 06:30 CULTURE BLOOD [BC] Stat 11/16/17 06:35 CULTURE BLOOD [BC] Stat 11/16/17 18:23 Chest 2V [CR] Stat Blood Culture x2 Reflex Set [OM.PC] Stat 11/16/17 19:27 Resuscitation Status Routine 11/16/17 19:30 Sodium Chloride 0.9% [Normal Saline] 1,000 ml IV ASDIRECTED 11/16/17 20:00 methylPREDNISolone Sod Succ [Solu-MEDROL] 62.5 mg IVPUSH Q24H 11/16/17 20:30 Patient Status [ADT] Routine Intake and Output [RC] 0630,1830 Oxygen Therapy [RC] .PRN Pulse Oximetry [RC] .PRN RT Aerosol Therapy [RC] .PRN Up With Assistance [RC] .PRN Vital Signs [RC] 0000,0400,0800,1200,1600,2000 Acetaminophen [Tylenol] 650 mg PO Q4H PRN Albuterol/Ipratropium [DuoNeb 3.0-0.5 MG/3 ML] 3 ml NEB Q4H PRN Docusate Sodium [Colace] 100 mg PO BID PRN Ibuprofen [Motrin] 600 mg PO Q6H PRN Magnesium Hydroxide [Milk of Magnesia] 30 ml PO Q12H PRN Ondansetron [Zofran] 4 mg IV Q6H PRN Oseltamivir [Tamiflu] 75 mg PO BID Polyethylene Glycol 3350 [MiraLAX] 17 gm PO DAILY PRN Temazepam [Restoril] 15 mg PO BEDTIME PRN 11/16/17 20:45 carBAMazepine [TEGretol Tab] 150 mg PO QPM 11/16/17 Dinner Regular Diet [DIET] 11/17/17 05:11 BASIC METABOLIC PANEL,BMP [CHEM] AM C-REACTIVE PROTEIN [CHEM] AM CBC WITH AUTO DIFF [HEME] AM 11/17/17 08:00 carBAMazepine [TEGretol Tab] 200 mg PO QAM 11/17/17 12:00 carBAMazepine [TEGretol Tab] 100 mg PO DAILY@1200 - Assessment/Plan Admission H&P: Please use this note as an admission H&P Last 24 Hours: My Active Orders 11/16/17 06:30 CULTURE BLOOD [BC] Stat 11/16/17 06:35 CULTURE BLOOD [BC] Stat 11/16/17 18:23 Chest 2V [CR] Stat Blood Culture x2 Reflex Set [OM.PC] Stat 11/16/17 19:27 Resuscitation Status Routine 11/16/17 19:30 Sodium Chloride 0.9% [Normal Saline] 1,000 ml IV ASDIRECTED 11/16/17 20:00 methylPREDNISolone Sod Succ [Solu-MEDROL] 62.5 mg IVPUSH Q24H 11/16/17 20:30 Patient Status [ADT] Routine Intake and Output [RC] 0630,1830 Oxygen Therapy [RC] .PRN Pulse Oximetry [RC] .PRN RT Aerosol Therapy [RC] .PRN Up With Assistance [RC] .PRN Vital Signs [RC] 0000,0400,0800,1200,1600,2000 Acetaminophen [Tylenol] 650 mg PO Q4H PRN Albuterol/Ipratropium [DuoNeb 3.0-0.5 MG/3 ML] 3 ml NEB Q4H PRN Docusate Sodium [Colace] 100 mg PO BID PRN Ibuprofen [Motrin] 600 mg PO Q6H PRN Magnesium Hydroxide [Milk of Magnesia] 30 ml PO Q12H PRN Ondansetron [Zofran] 4 mg IV Q6H PRN Oseltamivir [Tamiflu] 75 mg PO BID Polyethylene Glycol 3350 [MiraLAX] 17 gm PO DAILY PRN Temazepam [Restoril] 15 mg PO BEDTIME PRN 11/16/17 20:45 carBAMazepine [TEGretol Tab] 150 mg PO QPM 11/16/17 Dinner Regular Diet [DIET] 11/17/17 05:11 BASIC METABOLIC PANEL,BMP [CHEM] AM C-REACTIVE PROTEIN [CHEM] AM CBC WITH AUTO DIFF [HEME] AM 11/17/17 08:00 carBAMazepine [TEGretol Tab] 200 mg PO QAM 11/17/17 12:00 carBAMazepine [TEGretol Tab] 100 mg PO DAILY@1200 Assessment:: Influenza- suspected Fever Plan: Will admit for IV hydration as patient is refusing to drink alf staff having difficult time keeping fever down. Will have hospital staff alternate Tylenol and ibuprofen every 3 hours as needed for fever/ discomfort. Admit observation to Dr. Yen See [facility] for admit orders
[2017-11-16 18:55] LABS: CHLORIDE,CL 100 mEq/L (98-106); SODIUM,NA 137 mEq/L (136-145)
[2017-11-16] MEDS: Sodium Chloride 0.9% 1,000 ML IV SCH (20:15)
[2017-11-16] MEDS ORDERED: Docusate Sodium 100 MG Cap PO PRN (20:30)
[2017-11-16] MEDS ORDERED: Ondansetron 4 MG/2 ML SDV IV PRN (20:30)
[2017-11-16] MEDS ORDERED: Albuterol/Ipratropium 3.0-0.5 MG/3 ML Neb Soln NEB PRN (20:30)
[2017-11-16] MEDS ORDERED: Temazepam 15 MG Cap PO PRN (20:30)
[2017-11-16] MEDS ORDERED: Magnesium Hydroxide 400 MG/5 ML Susp 30 ML Cup PO PRN (20:30)
[2017-11-16] MEDS ORDERED: Polyethylene Glycol 3350 Powder 17 GM Packet PO PRN (20:30)
[2017-11-16] MEDS: Oseltamivir 75 MG Cap PO SCH (21:15)
[2017-11-16] MEDS: methylPREDNISolone Sodium Succinate 125 MG/2 ML SDV IVPUSH SCH (21:15)
[2017-11-16] MEDS: CARBAMAZEPINE 200 MG PO SCH (21:15)
[2017-11-17] MEDS: Sodium Chloride 0.9% 1,000 ML IV SCH ×2 (04:29→05:57)
[2017-11-17 08:11] LABS: CHLORIDE,CL 104 mEq/L (98-106); SODIUM,NA 141 mEq/L (136-145)
[2017-11-17] MEDS: NS + KCl 20mEq/L 1,000 ML IV SCH ×2 (08:14→21:57)
[2017-11-17] MEDS: Oseltamivir 75 MG Cap PO SCH ×2 (08:14→19:52)
[2017-11-17] MEDS: Clindamycin Phosphate in D5W 300 MG in Premix Bag 1 BAG IV SCH ×6 (10:40→21:55)
[2017-11-17] MEDS: Acetaminophen 325 MG Tab PO PRN (10:45)
[2017-11-17] MEDS: CARBAMAZEPINE 200 MG PO SCH ×3 (11:35→19:52)
--- NOTE | 2017-11-17 16:01 | PCM.PN ---
- General Info Date of Service: 11/17/17 Admission Dx/Problem (Free Text): Influenza Functional Status: Reports: Tolerating Diet, Ambulating - Review of Systems General: Reports: Fever, Weakness, Other (ROS obtained per nursing staff) HEENT: Reports: No Symptoms Pulmonary: Denies: Shortness of Breath, Cough, Wheezing Cardiovascular: Reports: Edema Gastrointestinal: Reports: Decreased Appetite. Denies: Diarrhea, Nausea, Vomiting Genitourinary: Reports: No Symptoms Skin: Reports: Other (redness and swelling to LLE) Neurological: Reports: Other (patient has history of developmental disability so minimal verbalizations) - Patient Data Vitals - Most Recent: Last Vital Signs Temp 100.2 F 11/17/17 15:50 Pulse 89 11/17/17 15:50 Resp 20 11/17/17 15:50 BP 113/66 11/17/17 15:50 Pulse Ox 99 11/17/17 15:50 Weight - Most Recent: 163 lb 9.6 oz I&O - Last 24 Hours: Intake & Output 11/17/17 11/17/17 11/17/17 06:59 14:59 22:59 Intake Total 970 Balance 970 Lab Results Last 24 Hours: Laboratory Results - last 24 hr 11/17/17 11/17/17 Range/Units 05:11 07:45 WBC 3.3 L (5.0-10.0) 10^3/uL RBC 4.46 L (4.50-6.00) 10^6/uL Hgb 12.6 L (14.0-18.0) g/dL Hct 38.5 L (40.0-54.0) % MCV 86.3 (82.0-94.0) fL MCH 28.3 (27.0-32.0) pg MCHC 32.7 L (33.0-38.0) g/dL RDW Coeff of Korey 13.8 (11.0-15.0) % Plt Count 150 (150-400) 10^3/uL Neut % (Auto) 58.9 (35-85) % Lymph % (Auto) 19.0 (10-55) % [place] % (Auto) 21.8 H (0-16) % Eos % (Auto) 0 (0-5) % Baso % (Auto) 0.3 (0-3) % Neut # (Auto) 1.95 (1.80-7.00) 10^3/uL Lymph # (Auto) 0.63 L (1.00-4.80) 10^3/uL [place] # (Auto) 0.72 (0.00-0.80) 10^3/uL Eos # (Auto) 0.00 (0.00-0.45) 10^3/uL Baso # (Auto) 0.01 10^3/uL Sodium 141 (136-145) mEq/L Potassium 4.1 D (3.5-5.0) mEq/L Chloride 104 (98-106) mEq/L Carbon Dioxide 26 (21-32) mmol/L BUN 15 (7-18) mg/dL Creatinine 0.7 (0.7-1.3) mg/dL Est Cr Clr Drug Dosing 136.67 mL/min Estimated GFR (MDRD) > 60 (>=60) mL/min Glucose 89 (75-99) mg/dL Calcium 8.2 L (8.4-10.1) mg/dL C-Reactive Protein 18.6 H (0.2-0.8) mg/dL Med Orders - Current: Current Medications Acetaminophen (Tylenol) 650 mg PO Q4H PRN PRN Reason: Pain (Mild 1-3)/fever Last Admin: 11/17/17 10:45 Dose: 650 mg Albuterol/Ipratropium (Duoneb 3.0-0.5 Mg/3 Ml) 3 ml NEB Q4H PRN PRN Reason: Shortness Of Breath/wheezing Carbamazepine (Tegretol Tab) 100 mg PO DAILY@1200 [facility] Last Admin: 11/17/17 12:04 Dose: 100 mg Carbamazepine (Tegretol Tab) 150 mg PO QPM [facility] Last Admin: 11/16/17 21:15 Dose: 150 mg Carbamazepine (Tegretol Tab) 200 mg PO QAM [facility] Last Admin: 11/17/17 11:35 Dose: Not Given Docusate Sodium (Colace) 100 mg PO BID PRN PRN Reason: Constipation Potassium Chloride/Sodium Chloride (Normal Saline With 20 Meq Kcl) 1,000 mls @ 75 mls/hr IV ASDIRECTED [facility] Last Admin: 11/17/17 08:14 Dose: 75 mls/hr Clindamycin Phosphate 300 mg/ (Premix) 50 mls @ 100 mls/hr IV Q6H [facility] Last Admin: 11/17/17 10:40 Dose: 100 mls/hr Ibuprofen (Motrin) 600 mg PO Q6H PRN PRN Reason: Pain (mild 1-3) Magnesium Hydroxide (Milk Of Magnesia) 30 ml PO Q12H PRN PRN Reason: Constipation Methylprednisolone Sodium Succinate (Solu-Medrol) 62.5 mg IVPUSH Q24H [facility] Last Admin: 11/16/17 21:15 Dose: 62.5 mg Ondansetron HCl (Zofran) 4 mg IV Q6H PRN PRN Reason: Nausea/Vomiting Oseltamivir Phosphate (Tamiflu) 75 mg PO BID [facility] Stop: 11/21/17 20:31 Last Admin: 11/17/17 08:14 Dose: 75 mg Polyethylene Glycol (Miralax) 17 gm PO DAILY PRN PRN Reason: Constipation Temazepam (Restoril) 15 mg PO BEDTIME PRN PRN Reason: Sleep Discontinued Medications Sodium Chloride (Normal Saline) 1,000 mls @ 100 mls/hr IV ASDIRECTED [facility] Last Admin: 11/17/17 05:57 Dose: 100 mls/hr Ibuprofen (Motrin) 600 mg PO ONETIME ONE Stop: 11/16/17 18:26 Last Admin: 11/16/17 18:37 Dose: 600 mg - Exam General: Alert, Oriented HEENT: Mucous Membr. Moist/[place] Neck: Supple Lungs: Clear to Auscultation, Normal Respiratory Effort Cardiovascular: Regular Rate, Regular Rhythm GI/Abdominal Exam: Normal Bowel Sounds, Soft, Non-Tender Extremities: Other (left ) Skin: Other (erythema noted to LLE, swollen, and very warm to the touch. No open areas noted.) - Problem List & Annotations (1) Cellulitis SNOMED Code(s): 029807554 Code(s): L03.90 - CELLULITIS, UNSPECIFIED Status: Acute Priority: High Current Visit: Yes Qualifiers: Site of cellulitis: extremity Site of cellulitis of extremity: lower extremity Laterality: left Qualified Code(s): L03.116 - Cellulitis of left lower limb (2) Influenza SNOMED Code(s): 8330949 Code(s): J11.1 - FLU DUE TO UNIDENTIFIED INFLUENZA VIRUS W OTH RESP MANIFEST Status: Acute Priority: High Current Visit: Yes - Problem List Review Problem List Initiated/Reviewed/Updated: Yes - My Orders Last 24 Hours: My Active Orders 11/17/17 10:00 Clindamycin Phosphate in D5W [Cleocin in D5W] 300 mg Premix Bag 1 bag IV Q6H - Assessment Assessment:: Questionable influenza Cellulitis of LLE - Plan Plan:: Patient stable today, still running fevers. Lung sounds are clear, minimal cough. Patient does answer yes and will speak in short sentences which is chronic related to his developmental disability. Grandfather relates he does have a history of lymphedema in his legs but he does typically wear HANNA hose and they had been doing well. Today, noted to have significant redness, warmth and swelling to his LLE. Question source of fever. Labs noted to have a low WBC of 3.3, CRP spiked up to 18.6. Continue with IV fluids. Start Cleocin. Treat fever. Possible discharge in next day or 2.
[2017-11-17] MEDS: Ibuprofen 200 MG Tab PO PRN (19:53)
[2017-11-17] MEDS: methylPREDNISolone Sodium Succinate 125 MG/2 ML SDV IVPUSH SCH (19:56)
[2017-11-18] MEDS: Clindamycin Phosphate in D5W 300 MG in Premix Bag 1 BAG IV SCH ×8 (04:11→21:41)
[2017-11-18] MEDS: Oseltamivir 75 MG Cap PO SCH ×2 (09:01→20:08)
[2017-11-18] MEDS: CARBAMAZEPINE 200 MG PO SCH ×4 (09:01→19:19)
[2017-11-18] MEDS: Acetaminophen 325 MG Tab PO PRN ×2 (11:58→20:08)
[2017-11-18] MEDS: Ibuprofen 200 MG Tab PO PRN ×2 (14:23→21:42)
[2017-11-18] MEDS: cefTRIAXone 1 GM Vial IVPUSH SCH (14:29)
[2017-11-18] MEDS: methylPREDNISolone Sodium Succinate 125 MG/2 ML SDV IVPUSH SCH (20:09)
--- NOTE | 2017-11-18 22:23 | PCM.PN ---
- General Info Date of Service: 11/18/17 Admission Dx/Problem (Free Text): Influenza Functional Status: Reports: Pain Controlled, Tolerating Diet - Review of Systems General: Reports: Fever, Weakness. Denies: Fatigue HEENT: Reports: No Symptoms Pulmonary: Denies: Shortness of Breath, Cough, Wheezing Cardiovascular: Reports: Edema. Denies: Chest Pain, Lightheadedness Gastrointestinal: Denies: Abdominal Pain, Nausea, Vomiting Genitourinary: Reports: No Symptoms Skin: Reports: Other (redness to left lower lower leg and left arm) Neurological: Reports: Pre-Existing Deficit - Patient Data Vitals - Most Recent: Last Vital Signs Temp 101.2 F H 11/18/17 21:42 Pulse 81 11/18/17 20:00 Resp 18 11/18/17 20:00 BP 107/63 11/18/17 20:00 Pulse Ox 99 11/18/17 20:00 Weight - Most Recent: 163 lb 9.6 oz I&O - Last 24 Hours: Intake & Output 11/18/17 11/18/17 11/18/17 06:59 14:59 22:59 Intake Total 395 50 650 Balance 395 50 650 Med Orders - Current: Current Medications Acetaminophen (Tylenol) 650 mg PO Q4H PRN PRN Reason: Pain (Mild 1-3)/fever Last Admin: 11/18/17 20:08 Dose: 650 mg Albuterol/Ipratropium (Duoneb 3.0-0.5 Mg/3 Ml) 3 ml NEB Q4H PRN PRN Reason: Shortness Of Breath/wheezing Carbamazepine (Tegretol Tab) 100 mg PO DAILY@1200 [facility] Last Admin: 11/18/17 11:54 Dose: 100 mg Carbamazepine (Tegretol Tab) 150 mg PO QPM [facility] Last Admin: 11/18/17 19:19 Dose: Not Given Carbamazepine (Tegretol Tab) 200 mg PO QAM [facility] Last Admin: 11/18/17 09:01 Dose: 200 mg Ceftriaxone Sodium (Rocephin) 1 gm IVPUSH DAILY@1200 [facility] Last Admin: 11/18/17 14:29 Dose: 1 gm Docusate Sodium (Colace) 100 mg PO BID PRN PRN Reason: Constipation Clindamycin Phosphate 300 mg/ (Premix) 50 mls @ 100 mls/hr IV Q6H [facility] Last Admin: 11/18/17 21:41 Dose: 100 mls/hr Ibuprofen (Motrin) 600 mg PO Q6H PRN PRN Reason: Pain (mild 1-3) Last Admin: 11/18/17 21:42 Dose: 600 mg Magnesium Hydroxide (Milk Of Magnesia) 30 ml PO Q12H PRN PRN Reason: Constipation Methylprednisolone Sodium Succinate (Solu-Medrol) 62.5 mg IVPUSH Q24H [facility] Last Admin: 11/18/17 20:09 Dose: 62.5 mg Ondansetron HCl (Zofran) 4 mg IV Q6H PRN PRN Reason: Nausea/Vomiting Oseltamivir Phosphate (Tamiflu) 75 mg PO BID [facility] Stop: 11/21/17 20:31 Last Admin: 11/18/17 20:08 Dose: 75 mg Polyethylene Glycol (Miralax) 17 gm PO DAILY PRN PRN Reason: Constipation Temazepam (Restoril) 15 mg PO BEDTIME PRN PRN Reason: Sleep Discontinued Medications Sodium Chloride (Normal Saline) 1,000 mls @ 100 mls/hr IV ASDIRECTED [facility] Last Admin: 11/17/17 05:57 Dose: 100 mls/hr Potassium Chloride/Sodium Chloride (Normal Saline With 20 Meq Kcl) 1,000 mls @ 75 mls/hr IV ASDIRECTED [facility] Last Admin: 11/17/17 21:57 Dose: 75 mls/hr Ibuprofen (Motrin) 600 mg PO ONETIME ONE Stop: 11/16/17 18:26 Last Admin: 11/16/17 18:37 Dose: 600 mg - Exam General: Alert, Cooperative, No Acute Distress HEENT: Mucous Membr. Moist/[place] Neck: Supple Lungs: Clear to Auscultation, Normal Respiratory Effort Cardiovascular: Regular Rate, Regular Rhythm GI/Abdominal Exam: Normal Bowel Sounds, Soft, Non-Tender Extremities: Pedal Edema (2+ LLE, 1+ RLE), Increased Warmth (increased warmth to LLE, light red in color) Neurological: No New Focal Deficit Psy/Mental Status: Alert - Problem List & Annotations (1) Cellulitis SNOMED Code(s): 692666278 Code(s): L03.90 - CELLULITIS, UNSPECIFIED Status: Acute Priority: High Current Visit: Yes Qualifiers: Site of cellulitis: extremity Site of cellulitis of extremity: lower extremity Laterality: left Qualified Code(s): L03.116 - Cellulitis of left lower limb (2) Influenza SNOMED Code(s): 8849783 Code(s): J11.1 - FLU DUE TO UNIDENTIFIED INFLUENZA VIRUS W OTH RESP MANIFEST Status: Acute Priority: High Current Visit: Yes - Problem List Review Problem List Initiated/Reviewed/Updated: Yes - My Orders Last 24 Hours: My Active Orders 11/18/17 13:00 cefTRIAXone [Rocephin] 1 gm IVPUSH DAILY@1200 - Assessment Assessment:: Questionable influenza Cellulitis of LLE - Plan Plan:: Patient stable today, still running fevers. Lung sounds are clear, minimal cough. Patient does answer yes and will speak in short sentences which is chronic related to his developmental disability. Grandfather relates he does have a history of lymphedema in his legs but he does typically wear HANNA hose and they had been doing well. Today, noted to have significant redness, warmth and swelling to his LLE. Question source of fever. Labs noted to have a low WBC of 3.3, CRP spiked up to 18.6. Continue with IV fluids. Start Cleocin. Treat fever. Possible discharge in next day or 2. 11-18-2017 Patient continues to run fevers, spiked to 102 last evening. Appears to be in no acute distress. Did tolerate full breakfast this am. No change in neurological status. LLE continues to be very warm to the touch, edema noted. Mild redness. Left upper arm also noted to be red. Blood cultures negative. Continue with IV Cleocin, will add Rocephin. Repeat labs in am. IV fluids stopped as tolerating oral intake well. Possible discharge home tomorrow.
[2017-11-19] MEDS: Clindamycin Phosphate in D5W 300 MG in Premix Bag 1 BAG IV SCH ×8 (04:15→22:00)
[2017-11-19 07:49] LABS: CHLORIDE,CL 107 mEq/L (98-106); SODIUM,NA 145 mEq/L (136-145)
[2017-11-19] MEDS: Oseltamivir 75 MG Cap PO SCH ×2 (07:52→20:13)
[2017-11-19] MEDS: CARBAMAZEPINE 200 MG PO SCH ×2 (07:53→11:37)
[2017-11-19] MEDS: Acetaminophen 325 MG Tab PO PRN ×3 (09:41→20:17)
[2017-11-19] MEDS: cefTRIAXone 1 GM Vial IVPUSH SCH (11:37)
--- NOTE | 2017-11-19 12:14 | PCM.PN ---
- General Info Date of Service: 11/19/17 Admission Dx/Problem (Free Text): Influenza Functional Status: Reports: Pain Controlled, Tolerating Diet. Denies: Ambulating - Review of Systems General: Reports: Fever. Denies: Weakness, Fatigue HEENT: Reports: Rhinitis Pulmonary: Denies: Shortness of Breath, Cough, Sputum Cardiovascular: Denies: Chest Pain, Edema, Lightheadedness Gastrointestinal: Reports: Decreased Appetite. Denies: Abdominal Pain, Nausea, Vomiting Genitourinary: Reports: No Symptoms Musculoskeletal: Reports: No Symptoms Skin: Reports: No Symptoms Neurological: Reports: Pre-Existing Deficit - Patient Data Vitals - Most Recent: Last Vital Signs Temp 98.8 F 11/19/17 11:48 Pulse 82 11/19/17 11:48 Resp 18 11/19/17 11:48 BP 108/53 L 11/19/17 11:48 Pulse Ox 96 11/19/17 11:48 Weight - Most Recent: 163 lb 9.6 oz I&O - Last 24 Hours: Intake & Output 11/18/17 11/19/17 11/19/17 22:59 06:59 14:59 Intake Total 700 545 Balance 700 545 Lab Results Last 24 Hours: Laboratory Results - last 24 hr 11/19/17 11/19/17 Range/Units 07:15 07:15 WBC 7.5 (5.0-10.0) 10^3/uL RBC 4.77 (4.50-6.00) 10^6/uL Hgb 13.6 L (14.0-18.0) g/dL Hct 41.1 (40.0-54.0) % MCV 86.2 (82.0-94.0) fL MCH 28.5 (27.0-32.0) pg MCHC 33.1 (33.0-38.0) g/dL RDW Coeff of [place] 14.0 (11.0-15.0) % Plt Count 178 (150-400) 10^3/uL Neut % (Auto) 77.2 (35-85) % Lymph % (Auto) 10.7 (10-55) % [place] % (Auto) 12.1 (0-16) % Eos % (Auto) 0 (0-5) % Baso % (Auto) 0 (0-3) % Neut # (Auto) 5.82 (1.80-7.00) 10^3/uL Lymph # (Auto) 0.81 L (1.00-4.80) 10^3/uL [place] # (Auto) 0.91 H (0.00-0.80) 10^3/uL Eos # (Auto) 0.00 (0.00-0.45) 10^3/uL Baso # (Auto) 0.00 10^3/uL Sodium 145 (136-145) mEq/L Potassium 4.1 (3.5-5.0) mEq/L Chloride 107 H (98-106) mEq/L Carbon Dioxide 29 (21-32) mmol/L BUN 14 (7-18) mg/dL Creatinine 0.6 L (0.7-1.3) mg/dL Est Cr Clr Drug Dosing 159.44 mL/min Estimated GFR (MDRD) > 60 (>=60) mL/min Glucose 120 H D (75-99) mg/dL Calcium 8.7 (8.4-10.1) mg/dL C-Reactive Protein 11.4 H (0.2-0.8) mg/dL Med Orders - Current: Current Medications Acetaminophen (Tylenol) 650 mg PO Q4H PRN PRN Reason: Pain (Mild 1-3)/fever Last Admin: 11/19/17 09:41 Dose: 650 mg Albuterol/Ipratropium (Duoneb 3.0-0.5 Mg/3 Ml) 3 ml NEB Q4H PRN PRN Reason: Shortness Of Breath/wheezing Carbamazepine (Tegretol Tab) 100 mg PO DAILY@1200 [facility] Last Admin: 11/19/17 11:37 Dose: 100 mg Carbamazepine (Tegretol Tab) 200 mg PO QAM [facility] Last Admin: 11/19/17 07:53 Dose: 200 mg Carbamazepine (Tegretol Tab) 150 mg PO DAILY@1600 [facility] Ceftriaxone Sodium (Rocephin) 1 gm IVPUSH DAILY@1200 [facility] Last Admin: 11/19/17 11:37 Dose: 1 gm Docusate Sodium (Colace) 100 mg PO BID PRN PRN Reason: Constipation Clindamycin Phosphate 300 mg/ (Premix) 50 mls @ 100 mls/hr IV Q6H [facility] Last Admin: 11/19/17 09:42 Dose: 100 mls/hr Ibuprofen (Motrin) 600 mg PO Q6H PRN PRN Reason: Pain (mild 1-3) Last Admin: 11/18/17 21:42 Dose: 600 mg Magnesium Hydroxide (Milk Of Magnesia) 30 ml PO Q12H PRN PRN Reason: Constipation Methylprednisolone Sodium Succinate (Solu-Medrol) 62.5 mg IVPUSH Q24H [facility] Last Admin: 11/18/17 20:09 Dose: 62.5 mg Ondansetron HCl (Zofran) 4 mg IV Q6H PRN PRN Reason: Nausea/Vomiting Oseltamivir Phosphate (Tamiflu) 75 mg PO BID [facility] Stop: 11/21/17 20:31 Last Admin: 11/19/17 07:52 Dose: 75 mg Polyethylene Glycol (Miralax) 17 gm PO DAILY PRN PRN Reason: Constipation Temazepam (Restoril) 15 mg PO BEDTIME PRN PRN Reason: Sleep Discontinued Medications Carbamazepine (Tegretol Tab) 150 mg PO QPM [facility] Last Admin: 11/18/17 19:19 Dose: Not Given Sodium Chloride (Normal Saline) 1,000 mls @ 100 mls/hr IV ASDIRECTED [facility] Last Admin: 11/17/17 05:57 Dose: 100 mls/hr Potassium Chloride/Sodium Chloride (Normal Saline With 20 Meq Kcl) 1,000 mls @ 75 mls/hr IV ASDIRECTED [facility] Last Admin: 11/17/17 21:57 Dose: 75 mls/hr Ibuprofen (Motrin) 600 mg PO ONETIME ONE Stop: 11/16/17 18:26 Last Admin: 11/16/17 18:37 Dose: 600 mg - Exam General: Alert, Cooperative Neck: Supple Lungs: Clear to Auscultation, Normal Respiratory Effort Cardiovascular: Regular Rate, Regular Rhythm GI/Abdominal Exam: Normal Bowel Sounds, Soft, Non-Tender Extremities: Normal Inspection, Pedal Edema, Increased Warmth (LLE), Redness Neurological: No New Focal Deficit - Problem List & Annotations (1) Cellulitis SNOMED Code(s): 631407613 Code(s): L03.90 - CELLULITIS, UNSPECIFIED Status: Acute Priority: High Current Visit: Yes Qualifiers: Site of cellulitis: extremity Site of cellulitis of extremity: lower extremity Laterality: left Qualified Code(s): L03.116 - Cellulitis of left lower limb (2) Influenza SNOMED Code(s): 4488646 Code(s): J11.1 - FLU DUE TO UNIDENTIFIED INFLUENZA VIRUS W OTH RESP MANIFEST Status: Acute Priority: High Current Visit: Yes - Problem List Review Problem List Initiated/Reviewed/Updated: Yes - My Orders Last 24 Hours: My Active Orders 11/18/17 13:00 cefTRIAXone [Rocephin] 1 gm IVPUSH DAILY@1200 - Assessment Assessment:: Questionable influenza Cellulitis of LLE - Plan Plan:: Patient stable today, still running fevers. Lung sounds are clear, minimal cough. Patient does answer yes and will speak in short sentences which is chronic related to his developmental disability. Grandfather relates he does have a history of lymphedema in his legs but he does typically wear HANNA hose and they had been doing well. Today, noted to have significant redness, warmth and swelling to his LLE. Question source of fever. Labs noted to have a low WBC of 3.3, CRP spiked up to 18.6. Continue with IV fluids. Start Cleocin. Treat fever. Possible discharge in next day or 2. 11-18-2017 Patient continues to run fevers, spiked to 102 last evening. Appears to be in no acute distress. Did tolerate full breakfast this am. No change in neurological status. LLE continues to be very warm to the touch, edema noted. Mild redness. Left upper arm also noted to be red. Blood cultures negative. Continue with IV Cleocin, will add Rocephin. Repeat labs in am. IV fluids stopped as tolerating oral intake well. Possible discharge home tomorrow. 11-19-2017 Patient continues to run a fever, 100.3 this am. Not eating well today. More resistant to exam. LLE continues to be very warm to the touch, mild red in nature, swollen. Does not appear to be tender. Lung sounds are clear. Labs this am show a WBC of 7.5, CRP improving, now down to 11.4. Will continue with IV Cleocin for coverage with concerns for cellulitis. Discharge home tomorrow if afebrile.
[2017-11-19] MEDS ORDERED: CARBAMAZEPINE 200 MG PO SCH (16:00)
[2017-11-19] MEDS: Ibuprofen 200 MG Tab PO PRN (16:59)
[2017-11-19] MEDS: methylPREDNISolone Sodium Succinate 125 MG/2 ML SDV IVPUSH SCH (20:13)
[2017-11-20] MEDS: Clindamycin Phosphate in D5W 300 MG in Premix Bag 1 BAG IV SCH ×4 (03:35→09:11)
[2017-11-20] MEDS: CARBAMAZEPINE 200 MG PO SCH ×2 (09:10→13:02)
[2017-11-20] MEDS: Oseltamivir 75 MG Cap PO SCH (09:11)
[2017-11-20 11:46] VITALS: BP 109/73
[2017-11-20] MEDS: cefTRIAXone 1 GM Vial IVPUSH SCH (13:03)
--- NOTE | 2017-11-22 20:21 | PCM.DCSUM1 ---
Discharge Summary - Hospital Course Free Text/Narrative:: Patient admitted by Veronique from ER with high temps, cough and concerns of influenza. Had been running fevers up to 103 that were not responding as well to tylenol and ibuprofen on day of discharge. Initial work up in the ER did show a viral picture with a WBC of 4.5, CRP 17.2, chest xray clear. Unable to test for influenza due to shortage of kits in the state. No taking fluids well. Admitted for IV fluids, nebs and tamiflu. Blood cultures done. - Discharge Data Discharge Date: 11/20/17 Discharge Disposition: Home, Self-Care 01 Condition: Good - Discharge Diagnosis/Problem(s) (1) Cellulitis SNOMED Code(s): 057071863 ICD Code: L03.90 - CELLULITIS, UNSPECIFIED Status: Acute Priority: High Qualifiers: Site of cellulitis: extremity Site of cellulitis of extremity: lower extremity Laterality: left Qualified Code(s): L03.116 - Cellulitis of left lower limb (2) Influenza SNOMED Code(s): 4807053 ICD Code: J11.1 - FLU DUE TO UNIDENTIFIED INFLUENZA VIRUS W OTH RESP MANIFEST Status: Acute Priority: High - Patient Summary/Data Complications: none Consults: Consultations 11/19/17 14:39 Consult to Physical Therapy [PT Evaluation and Treatment] [CONS] Routine Hospital Course: Patient had slow improvement of overall status. He continued to run fevers for several days. He did not have shortness of breath or much of a change in respiratory status. On day 1 after admit, patient was noted to have increased warmth, redness and swelling of LLE which did improve over the days of inpatient treatment. IV Cleocin was added on day 1, Rocephin eventually added due to ongoing fevers. Patient appetite did improve. Did start to become more active, ambulated well with PT on day of discharge. Afebrile for 24 hours. WBC did remain stable through stay. CRP did spike up to 18.6 with improvement down to 9.7 by discharge. - Patient Instructions Diet: Usual Diet as Tolerated Activity: As Tolerated - Discharge Plan Prescriptions/Med Rec: Cefuroxime Axetil [Cefuroxime] 250 mg PO BID #14 tablet Home Medications: Home Meds Aloe Vera/Sodium Chloride [[place] Saline Nasal Gel] 1 spray NASBOTH BID PRN 12/17/ 16 [History] Ascorbic Acid [Vitamin C] 250 mg PO DAILY 09/13/16 [History] Calcium Carb & Citrate/Vit D3 [Calcium + D3 ER Tablet] 600 mg PO BID 09/13/16 [ History] Iron Ps Cmplx/Vit B12/Fa [Ferrex 150 Forte Capsule] 150 mg PO DAILY 09/13/16 [ History] Multivitamin with Minerals [Multiple Vitamin] 1 tab PO DAILY 09/13/16 [History] carBAMazepine [Carbamazepine] 100 mg PO 1200 09/13/16 [History] carBAMazepine [Carbamazepine] 150 mg PO QPM 09/13/16 [History] carBAMazepine [Carbamazepine] 200 mg PO QAM 09/13/16 [History] Julius Med Sinus Rinse 30 ml [facility]YDI BID 07/22/17 [History] Cefuroxime Axetil [Cefuroxime] 250 mg PO BID #14 tablet 11/20/17 [Rx] Forms: ED Department Discharge Referrals: Ventura Vanegas PA-C [Family Provider] - (Follow up in 7 days for hospital recheck) - Discharge Summary/Plan Comment DC Time >30 min.: No Discharge Summary/Plan Comment: Discharge back to the retirement. Continue Ceftin 250 mg BID for 7 days. Follow up with Juanjo Vanegas in a week. - General Info Date of Service: 11/20/17 Admission Dx/Problem (Free Text: Influenza Functional Status: Reports: Pain Controlled, Tolerating Diet, Ambulating - Review of Systems General: Denies: Fever, Weakness, Fatigue, Malaise HEENT: Reports: No Symptoms Pulmonary: Denies: Shortness of Breath, Cough Gastrointestinal: Denies: Abdominal Pain, Nausea, Vomiting Neurological: Reports: Pre-Existing Deficit - Patient Data Vitals - Most Recent: Last Vital Signs Temp 98.1 F 11/20/17 11:46 Pulse 77 11/20/17 11:46 Resp 18 11/20/17 11:46 BP 109/73 11/20/17 11:46 Pulse Ox 100 11/20/17 11:46 Weight - Most Recent: 163 lb 9.6 oz Med Orders - Current: Current Medications Discontinued Medications Acetaminophen (Tylenol) 650 mg PO Q4H PRN PRN Reason: Pain (Mild 1-3)/fever Last Admin: 11/19/17 20:17 Dose: 650 mg Albuterol/Ipratropium (Duoneb 3.0-0.5 Mg/3 Ml) 3 ml NEB Q4H PRN PRN Reason: Shortness Of Breath/wheezing Carbamazepine (Tegretol Tab) 100 mg PO DAILY@1200 [facility] Last Admin: 11/20/17 13:02 Dose: 100 mg Carbamazepine (Tegretol Tab) 150 mg PO QPM [facility] Last Admin: 11/18/17 19:19 Dose: Not Given Carbamazepine (Tegretol Tab) 200 mg PO QAM [facility] Last Admin: 11/20/17 09:10 Dose: 200 mg Carbamazepine (Tegretol Tab) 150 mg PO DAILY@1600 [facility] Last Admin: 11/19/17 16:51 Dose: 150 mg Ceftriaxone Sodium (Rocephin) 1 gm IVPUSH DAILY@1200 [facility] Last Admin: 11/20/17 13:03 Dose: 1 gm Docusate Sodium (Colace) 100 mg PO BID PRN PRN Reason: Constipation Sodium Chloride (Normal Saline) 1,000 mls @ 100 mls/hr IV ASDIRECTED [facility] Last Admin: 11/17/17 05:57 Dose: 100 mls/hr Potassium Chloride/Sodium Chloride (Normal Saline With 20 Meq Kcl) 1,000 mls @ 75 mls/hr IV ASDIRECTED [facility] Last Admin: 11/17/17 21:57 Dose: 75 mls/hr Clindamycin Phosphate 300 mg/ (Premix) 50 mls @ 100 mls/hr IV Q6H [facility] Last Admin: 11/20/17 09:11 Dose: 100 mls/hr Ibuprofen (Motrin) 600 mg PO ONETIME ONE Stop: 11/16/17 18:26 Last Admin: 11/16/17 18:37 Dose: 600 mg Ibuprofen (Motrin) 600 mg PO Q6H PRN PRN Reason: Pain (mild 1-3) Last Admin: 11/19/17 16:59 Dose: 600 mg Magnesium Hydroxide (Milk Of Magnesia) 30 ml PO Q12H PRN PRN Reason: Constipation Methylprednisolone Sodium Succinate (Solu-Medrol) 62.5 mg IVPUSH Q24H [facility] Last Admin: 11/19/17 20:13 Dose: 62.5 mg Ondansetron HCl (Zofran) 4 mg IV Q6H PRN PRN Reason: Nausea/Vomiting Oseltamivir Phosphate (Tamiflu) 75 mg PO BID [facility] Stop: 11/21/17 20:31 Last Admin: 11/20/17 09:11 Dose: 75 mg Polyethylene Glycol (Miralax) 17 gm PO DAILY PRN PRN Reason: Constipation Temazepam (Restoril) 15 mg PO BEDTIME PRN PRN Reason: Sleep - Exam General: Reports: Alert, Cooperative HEENT: Reports: Mucous Membr. Moist/[place] Neck: Reports: Supple Lungs: Reports: Clear to Auscultation, Normal Respiratory Effort Cardiovascular: Reports: Regular Rate, Regular Rhythm GI/Abdominal Exam: Normal Bowel Sounds, Soft, Non-Tender Extremities: Pedal Edema. No: Increased Warmth, Redness Skin: Reports: Warm, Dry Neurological: Reports: No New Focal Deficit *Q Meaningful Use (DIS) - VTE *Q VTE Criteria *Q: - Stroke *Q Stroke Criteria *Q: - AMI *Q AMI Criteria *Q:
== END 2017-11-20 14:00 | disposition home or self-care (01) | DRG 153 ==
LOC: CC.ED 18:09 → CC.MS 19:35 → UNDOADMOB 19:35 → INTOOBSV 20:30 → UNDOADMOB 20:30 → OBSVTOIN 20:30 → CC.MS 20:30 → INTOOBSV 11-18 08:56 → UNDOADMOB 11-18 08:56 → OBSVTOIN 11-18 08:56
PROVIDERS: ADMIT Nurse Practitioner Family; ATTEND Family Medicine
DX: J11.1 Influenza due to unidentified influenza virus with other respiratory manifestations (principal); L03.116 Cellulitis of left lower limb; F90.9 Attention-deficit hyperactivity disorder, unspecified type; F70 Mild intellectual disabilities; Q99.8 Other specified chromosome abnormalities; G80.9 Cerebral palsy, unspecified; Z91.040 Latex allergy status; Z88.8 Allergy status to other drugs, medicaments and biological substances; Z79.899 Other long term (current) drug therapy
CPT/HCPCS: 36415; 51701; 71046; 80048; 80053; 81003; 85025; 85379; 86140; 87040; 93005; 96361; 96365; 96366; 96375; 96376; 99284; A9270-GY; G0378; J0696; J2930; J3480; J7030

== ENCOUNTER 2018-12-13 19:40 | Emergency (ER) | payer MEDICAID ==
[2018-12-13 19:56] VITALS: BP 154/84
[2018-12-13 20:18] LABS: CHLORIDE,CL 103 mEq/L (98-106); SODIUM,NA 142 mEq/L (136-145)
--- NOTE | 2018-12-13 20:20 | EDM.PDOC ---
ED HPI GENERAL MEDICAL PROBLEM - General Chief Complaint: Lower Extremity Injury/Pain Stated Complaint: LEG SWELLING Time Seen by Provider: 12/13/18 19:46 Source of Information: Reports: Family, Other (staff from [address] [place] [address]) History Limitations: Reports: Altered Mental Status (patient has history of developmental disabilities), Language Barrier - History of Present Illness INITIAL COMMENTS - FREE TEXT/NARRATIVE: Patient presents to ER with staff and family with concerns of swelling in his legs. States seemed to begin acutely over the day. He was not wanting to walk like he normally does. Not aware of any falls. He has a history of cellulitis in his legs so family concerned. When sitting in his wheelchair at home, legs did appear more red earlier than now. Left leg worse than right. Grandmother notes increased swelling to his left knee, questions if he twisted it. He is essentially nonverbal, unable to relate if hurts anywhere. Has not had fevers like in the past when infected. Onset: Today, Gradual Duration: Hour(s): Location: Reports: Lower Extremity, Left, Lower Extremity, Right Associated Symptoms: Reports: Other (staff has not noted cough, shortness of breath, nausea or vomiting. ) - Related Data Allergies Allergy/AdvReac Type Severity Reaction Status Date / Time latex Allergy Cannot Verified 12/13/18 19:57 Remember midazolam [From Versed] Allergy Cannot Verified 12/13/18 19:57 Remember tape Allergy Rash Uncoded 12/13/18 19:57 Home Meds: Home Meds Aloe Vera/Sodium Chloride [[place] Saline Nasal Gel] 1 spray NASBOTH BID PRN [History] Ascorbic Acid [Vitamin C] 250 mg PO QPM 09/13/16 [History] Calcium Carb & Citrate/Vit D3 [Calcium + D3 ER Tablet] 600 mg PO BID 09/13/16 [ History] Iron Ps Complex/B12/Folic Acid [Ferrex 150 Forte Capsule] 150 mg PO QPM [History] Multivitamin with Minerals [Multiple Vitamin] 1 tab PO DAILY 09/13/16 [History] carBAMazepine [Carbamazepine] 100 mg PO 1200 09/13/16 [History] carBAMazepine [Carbamazepine] 150 mg PO QPM 09/13/16 [History] carBAMazepine [Carbamazepine] 200 mg PO QAM 09/13/16 [History] Julius Med Sinus Rinse 30 ml HEYDI BID 07/22/17 [History] [place]/Min Oil/Deepa/Wool Alcoh [Eucerin Creme] 1 applic TOP BID 03/11/18 [ History] Clindamycin Phosphate 30 gm TP BEDTIME PRN 03/11/18 [History] Past Medical History HEENT History: Reports: Impaired Vision Cardiovascular History: Reports: Other (See Below) Other Cardiovascular History: LYMPHEDEMA OF LOWER EXTREMITIES Neurological History: Reports: Cerebral Palsy, Seizure Psychiatric History: Reports: ADHD, Other (See Below) Other Psychiatric History: JOLEEN-MCDERMID SYNDROME, MODERATE MILD RETARDATION, HIGH PAIN TOLERANCE Endocrine/Metabolic History: Reports: Osteoporosis - Past Surgical History GI Surgical History: Reports: Hernia Repair/Other Other GI Surgeries/Procedures: INGUINAL Social & Family History - Family History Family Medical History: Noncontributory - Tobacco Use Smoking Status *Q: Never Smoker Second Hand Smoke Exposure: No - Caffeine Use Caffeine Use: Reports: None - Recreational Drug Use Recreational Drug Use: No Review of Systems - Review of Systems Review Of Systems: Unable To Obtain ED EXAM, GENERAL - Physical Exam Exam: See Below Exam Limited By: Language Barrier General Appearance: Alert, WD/WN, No Apparent Distress Ears: Normal External Exam, Normal TMs Nose: Normal Inspection, Normal Mucosa, No Blood Throat/Mouth: Normal Inspection, Normal Oropharynx Head: Normocephalic Neck: Normal Inspection, Supple, Non-Tender Respiratory/Chest: No Respiratory Distress, Lungs Clear, Normal Breath Sounds Cardiovascular: Regular Rate, Rhythm GI/Abdominal: Normal Bowel Sounds, Soft, Non-Tender Extremities: No: Increased Warmth, Redness, Other (sweling noted to lower extremities bilaterally, mild effusion noted to left knee) Neurological: Alert. No: Oriented Skin Exam: Warm, Dry. No: Erythema, Increased Warmth Course - Vital Signs Last Recorded V/S: Last Vital Signs Temp 98.7 F 12/13/18 19:49 Pulse 87 12/13/18 19:49 Resp 18 12/13/18 19:49 BP 154/84 H 12/13/18 19:49 Pulse Ox 99 12/13/18 19:49 - Orders/Labs/Meds Labs: Laboratory Tests 12/13/18 12/13/18 12/13/18 Range/Units 08:06 08:06 08:06 WBC 10.9 H (5.0-10.0) 10^3/uL RBC 4.88 (4.50-6.00) 10^6/uL Hgb 14.1 (14.0-18.0) g/dL Hct 41.9 (40.0-54.0) % MCV 85.9 (82.0-94.0) fL MCH 28.9 (27.0-32.0) pg MCHC 33.7 (33.0-38.0) g/dL RDW Coeff of Korey 13.9 (11.0-15.0) % Plt Count 234 (150-400) 10^3/uL Neut % (Auto) 85.7 H (35-85) % Lymph % (Auto) 7.7 L (10-55) % [place]rell % (Auto) 6.2 (0-16) % Eos % (Auto) 0.2 (0-5) % Baso % (Auto) 0.2 (0-3) % Neut # (Auto) 9.33 H (1.80-7.00) 10^3/uL Lymph # (Auto) 0.84 L (1.00-4.80) 10^3/uL [place]rell # (Auto) 0.68 (0.00-0.80) 10^3/uL Eos # (Auto) 0.02 (0.00-0.45) 10^3/uL Baso # (Auto) 0.02 10^3/uL D-Dimer, Quantitative 0.44 (0.00-0.50) Sodium 142 (136-145) mEq/L Potassium 3.8 (3.5-5.0) mEq/L Chloride 103 (98-106) mEq/L Carbon Dioxide 29 (21-32) mmol/L BUN 19 H (7-18) mg/dL Creatinine 0.8 (0.7-1.3) mg/dL Est Cr Clr Drug Dosing 118.52 mL/min Estimated GFR (MDRD) > 60 (>=60) mL/min Glucose 110 H (75-99) mg/dL Calcium 8.8 (8.4-10.1) mg/dL C-Reactive Protein 0.8 (0.2-0.8) mg/dL - Re-Assessments/Exams Free Text/Narrative Re-Assessment/Exam: 12/13/18 20:35 Lab work all normal. Did have patient walk in ER, is slow and cautious, not ambulating as well as his norm but better than it was at home. Discussed history with family/staff, will send antibiotic prescription for Cleocin if develops redness or warmth. Grandmother does relate he has a history of lymphedema as well. Departure - Departure Time of Disposition: 20:36 Disposition: Home, Self-Care 01 Condition: Good Clinical Impression: Left leg swelling, Right leg swelling - Discharge Information Referrals: PCP,None [Primary Care Provider] - Forms: ED Department Discharge Additional Instructions: 1. Elevate legs 2. Monitor for increased redness or warmth~ if occurs, start Cleocin 300 mg QID for 10 days 3. Tylenol for discomfort. 4. Call with any questions or concerns.
== END 2018-12-13 20:43 | disposition home or self-care (01) ==
LOC: CC.ED 19:40
DX: R22.43 Localized swelling, mass and lump, lower limb, bilateral (principal); Z91.040 Latex allergy status; Z88.8 Allergy status to other drugs, medicaments and biological substances
CPT/HCPCS: 36415; 80048; 85025; 85379; 86140; 99283

== ENCOUNTER 2020-03-03 10:26 | Emergency (ER) | payer MEDICAID ==
[2020-03-03] MEDS ORDERED: Sulfamethoxazole/Trimethoprim 800-160 MG Tab PO ONE (10:27)
[2020-03-03 10:36] VITALS: BP 145/89; PULSE 76
--- NOTE | 2020-03-03 10:37 | EDM.PDOC ---
ED HPI GENERAL MEDICAL PROBLEM - General Chief Complaint: General Stated Complaint: "infection in his foot" Time Seen by Provider: 03/03/20 10:29 Source of Information: Reports: Patient History Limitations: Reports: No Limitations - History of Present Illness INITIAL COMMENTS - FREE TEXT/NARRATIVE: This patient is a 29 year old male that presents to the ER. Patient is nonverbal and patient at [facility]. 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 Both report the patent they noticed [id number] and 2nd toe were red and the 1st toe had a blister. They noticed this morning. They report acting how he normally acts. Denies fever or vomiting. No streaking of redness. Onset: Today Onset Date: 03/03/20 Duration: Day(s): (1) Location: Reports: Lower Extremity, Left Severity: Moderate Improves with: Reports: None Worsens with: Reports: None Associated Symptoms: Denies: Confusion, Chest Pain, Cough, cough w sputum, Diaphoresis, Fever/Chills, Headaches, Loss of Appetite, Malaise, Nausea/Vomiting , Rash, Seizure, Shortness of Breath, Syncope, Weakness - Related Data Allergies Allergy/AdvReac Type Severity Reaction Status Date / Time latex Allergy Cannot Verified 03/03/20 10:37 Remember midazolam [From Versed] Allergy Cannot Verified 03/03/20 10:37 Remember tape Allergy Rash Uncoded 03/03/20 10:37 Home Meds: Home Meds Aloe Vera/Sodium Chloride [[place] Saline Nasal Gel] 1 spray NASBOTH BID PRN [History] Ascorbic Acid [Vitamin C] 250 mg PO QPM 09/13/16 [History] Calcium Carb, Citrate/Vit D3 [Calcium + D3 ER Tablet] 600 mg PO BID 09/13/16 [ History] Iron Ps Complex/B12/Folic Acid [Ferrex 150 Forte Capsule] 150 mg PO QPM [History] Multivitamin with Minerals [Multiple Vitamin] 1 tab PO DAILY 09/13/16 [History] carBAMazepine [Carbamazepine] 100 mg PO 1200 09/13/16 [History] carBAMazepine [Carbamazepine] 150 mg PO QPM 09/13/16 [History] carBAMazepine [Carbamazepine] 200 mg PO QAM 09/13/16 [History] Juluis Med Sinus Rinse 30 ml HEYDI BID 07/22/17 [History] [place]/Min Oil/Deepa/Wool Alcoh [Eucerin Creme] 1 applic TOP BID 03/11/18 [ History] Clindamycin Phosphate 30 gm TP BEDTIME PRN 03/11/18 [History] Sulfamethoxazole/Trimethoprim [Bactrim Ds Tablet] 1 each PO BID #16 tablet 03/03 [Rx] Past Medical History HEENT History: Reports: Impaired Vision Other HEENT History: tooth abscess Cardiovascular History: Reports: Other (See Below) Other Cardiovascular History: LYMPHEDEMA OF LOWER EXTREMITIES Gastrointestinal History: Reports: Other (See Below) Other Gastrointestinal History: inguinal hernia Genitourinary History: Reports: None Musculoskeletal History: Reports: Other (See Below), Osteoporosis Other Musculoskeletal History: hypotonia Neurological History: Reports: Cerebral Palsy, Seizure Psychiatric History: Reports: ADHD, Other (See Below) Other Psychiatric History: JOLEEN-MCDERMID SYNDROME, MODERATE MILD RETARDATION, HIGH PAIN TOLERANCE Endocrine/Metabolic History: Reports: Osteoporosis Hematologic History: Reports: Anemia Dermatologic History: Reports: None - Past Surgical History GI Surgical History: Reports: Hernia Repair/Other Other GI Surgeries/Procedures: INGUINAL Social & Family History - Family History Family Medical History: Noncontributory - Caffeine Use Caffeine Use: Reports: None ED ROS GENERAL - Review of Systems Review Of Systems: See Below Constitutional: Reports: No Symptoms. Denies: Fever, Chills, Malaise, Weakness , Diaphoresis, Weight Gain HEENT: Reports: No Symptoms Respiratory: Reports: No Symptoms Cardiovascular: Reports: No Symptoms Endocrine: Reports: No Symptoms GI/Abdominal: Reports: No Symptoms : Reports: No Symptoms Musculoskeletal: Reports: No Symptoms Skin: Reports: Erythema (left 1st and 2nd toes with blister to 1st) Neurological: Reports: No Symptoms Psychiatric: Reports: No Symptoms Hematologic/Lymphatic: Reports: No Symptoms Immunologic: Reports: No Symptoms ED EXAM, GENERAL - Physical Exam Exam: See Below Exam Limited By: Other ([facility]th [facility] patient nonverbal) General Appearance: Alert, WD/WN, No Apparent Distress Eye Exam: Bilateral Eye: Normal Inspection, PERRL Ears: Normal External Exam, Normal Canal, Hearing Grossly Normal, Normal TMs Ear Exam: Bilateral Ear: Auricle Normal, Canal Normal, TM normal Nose: Normal Inspection, Normal Mucosa, No Blood Throat/Mouth: Normal Inspection, Normal Lips, Normal Teeth, Normal Gums, Normal Oropharynx, No Airway Compromise Head: Atraumatic, Normocephalic Neck: Normal Inspection, Supple, Non-Tender, Full Range of Motion Respiratory/Chest: No Respiratory Distress, Lungs Clear, Normal Breath Sounds, No Accessory Muscle Use Cardiovascular: Normal Peripheral Pulses, Regular Rate, Rhythm, No Murmur Peripheral Pulses: 2+: Radial (L), Radial (R), Posterior Tibial (L), Posterior Tibial (R), Dorsalis Pedis (L), Dorsalis Pedis (R) GI/Abdominal: Soft, Non-Tender, No Organomegaly Back Exam: Normal Inspection Extremities: Normal Range of Motion, Non-Tender, No Pedal Edema, Normal Capillary Refill Neurological: Alert Psychiatric: Normal Affect, Normal Mood Skin Exam: Warm, Dry, Intact, Erythema (left 2nd toe cellulitic. Left 1st digit cellulitic with moderate sixed blister. Not open. No drainage. No streaking or joint involvement.) Lymphatic: No Adenopathy Course - Vital Signs Last Recorded V/S: Last Vital Signs Temp 97.8 F 03/03/20 10:29 Pulse 76 03/03/20 10:29 Resp 18 03/03/20 10:29 BP 145/89 H 03/03/20 10:29 Pulse Ox 98 03/03/20 10:29 - Orders/Labs/Meds Meds: Medications Discontinued Medications Generic Name Dose Route Start Last Admin Trade Name Anaya PRN Reason Stop Dose Admin Trimethoprim/Sulfamethoxazole 2 packet 03/03/20 10:33 03/03/20 10:48 Take Home: Sulfameth/Trimet 800-160mg, 2 Pack PO 03/03/20 10:34 2 packet ONETIME ONE Administration Departure - Departure Time of Disposition: 10:40 Disposition: Home, Self-Care 01 Condition: Fair Clinical Impression: Cellulitis Qualifiers: Site of cellulitis: extremity Site of cellulitis of extremity: lower extremity Laterality: left Qualified Code(s): L03.116 - Cellulitis of left lower limb - Discharge Information *PRESCRIPTION DRUG MONITORING PROGRAM REVIEWED*: Not Applicable *COPY OF PRESCRIPTION DRUG MONITORING REPORT IN PATIENT SONYA: Not Applicable Prescriptions: Sulfamethoxazole/Trimethoprim [Bactrim Ds Tablet] 1 each PO BID #16 tablet Instructions: Cellulitis, Adult, [id number] Forms: ED Department Discharge Additional Instructions: Followup with your primary care provider Return to the ER for worsening of condition or any emergent concerns such as spread of redness, fever, vomiting or other concerns Do not pop the blister: If does open, keep covered. Clean with soap and water twice a day, pat dry. Bactrim DS 1 pill twice a day for 10 days total: Was given 2 days worth in the ER: Prescription sent to [facility] Avoid shonda hose on that foot to avoid opening blister Sepsis Event Note - Focused Exam Vital Signs: Vital Signs Temp Pulse Resp BP Pulse Ox 03/03/20 10:29 97.8 F 76 18 145/89 H 98 Date Exam was Performed: 03/03/20 Time Exam was Performed: 10:57 - Assessment/Plan Plan: PLEASE SEE RN NOTE FOR PFSH
[2020-03-03] MEDS: Take Home: Sulfamethoxazole/Trimethoprim 800-160 MG Tab, 2 Tab Pack PO ONE (10:48)
== END 2020-03-03 10:57 | disposition home or self-care (01) ==
LOC: CC.ED 10:26
DX: L03.032 Cellulitis of left toe (principal); D64.9 Anemia, unspecified; R56.9 Unspecified convulsions; Z91.048 Other nonmedicinal substance allergy status; Z91.040 Latex allergy status; Z88.6 Allergy status to analgesic agent
CPT/HCPCS: 99283; A9270-GY

== ENCOUNTER → 2020-07-20 | Day surgery (SDC) | payer MEDICAID ==
[~2020-07-20] MED LIST: Dexamethasone 4 MG/ML 5 ML MDV IV ONE; Lidocaine 2% 5 ML SDV ONE; Ondansetron 4 MG/2 ML SDV IV ONE; Propofol 200 MG/20 ML SDV IV ONE; Succinylcholine 200 MG/10 ML MDV IV ONE; fentaNYL 100 MCG/2 ML SDV IV ONE
[2020-07-20] MEDS: Lactated Ringers 1,000 ML IV SCH (07:16)
[2020-07-20 10:34] VITALS: BP 137/97; PULSE 95
== END ==
LOC: CC.SDS 06:43
PROVIDERS: ATTEND Dentist General Practice
DX: K02.9 Dental caries, unspecified (principal); Q93.88 Other microdeletions; Z91.048 Other nonmedicinal substance allergy status; Z79.899 Other long term (current) drug therapy
CPT/HCPCS: 00170; J0330; J1100; J2001; J2405; J2704; J3010; J7120

== ENCOUNTER 2021-05-21 09:55 | Inpatient (IN) | payer MEDICAID ==
[2021-05-21] MEDS ORDERED: Sodium Chloride 0.9% 10 ML Syringe FLUSH PRN (11:23)
[2021-05-21 12:06] LABS: CHLORIDE,CL 103 mEq/L (98-106); SODIUM,NA 142 mEq/L (136-145)
[2021-05-21] MEDS: carBAMazepine 200 MG Tab PO SCH ×2 (12:24→19:46)
--- NOTE | 2021-05-21 12:34 | PCM.HP.2 ---
H&P History of Present Illness - General Date of Service: 05/21/21 Admit Problem/Dx: Admission Diagnosis/Problem Admission Diagnosis/Problem Cellulitis of foot Source of Information: Family (grandmother), Other ([address] [place] [address] caregiver) History Limitations: Reports: Altered Mental Status (chronically - not able to communicate) - History of Present Illness Initial Comments - Free Text/Narative: Ry is a 30 yo male who was seen by Senia Vanegas PA-C yesterday secondary to a fever. He had laboratory work and blood cultures drawn. No source of fever was found. CRP and WBC was slightly elevated. Neutrophils were elevated slightly as well. Was sent home on Ceftin. Blood cultures did come back positive today for gram positive cocci. We did end up calling [address] [place] [address] Staff and brought patient back for direct admission to the hospital for IV antibiotics. Caregiver does state his fever did break with Tylenol in the middle of the night. - Related Data Allergies/Adverse Reactions: Allergies Allergy/AdvReac Type Severity Reaction Status Date / Time midazolam [From Versed] Allergy Cannot Verified 05/21/21 10:05 Remember tape Allergy Rash Uncoded 05/21/21 10:05 Home Medications: Home Meds Ascorbic Acid [Vitamin C] 250 mg PO QPM 09/13/16 [History] Iron Ps Complex/B12/Folic Acid [Ferrex 150 Forte Capsule] 150 mg PO QPM 09/13/16 [History] Multivitamin with Minerals [Multiple Vitamin] 1 tab PO DAILY 09/13/16 [History] carBAMazepine [Carbamazepine] 100 mg PO 1200 09/13/16 [History] carBAMazepine [Carbamazepine] 150 mg PO QPM 09/13/16 [History] carBAMazepine [Carbamazepine] 200 mg PO QAM 09/13/16 [History] [place]/Min Oil/Deepa/Wool Alcoh [Eucerin Creme] 1 applic TOP BID PRN 03/11/18 [History] Clindamycin Phosphate 1 applic TP BEDTIME PRN 03/11/18 [History] Acetaminophen 650 mg PO BID 05/21/21 [History] Calcium/D3/Mag Ox/Parasitologist/Ray/Zn [Caltrate+D3 Plus Mineral Minis] 1 tab PO BID 05/21/21 [History] Cefuroxime Axetil [Ceftin] 500 mg PO BID 05/21/21 [History] L Acidophil/B Lactis/B [place] [Florajen Digest 15 B Cell Cap] 1 cap PO DAILY 05/21/21 [History] Sodium Chloride/Aloe Vera [[place] Saline Nasal Gel [place]] 1 spray NASBOTH BID 05/21/21 [History] Past Medical History HEENT History: Reports: Impaired Vision Other HEENT History: tooth abscess Cardiovascular History: Reports: Other (See Below) Other Cardiovascular History: LYMPHEDEMA OF LOWER EXTREMITIES Gastrointestinal History: Reports: Other (See Below) Other Gastrointestinal History: inguinal hernia Genitourinary History: Reports: None Musculoskeletal History: Reports: Other (See Below), Osteoporosis Other Musculoskeletal History: hypotonia Neurological History: Reports: Cerebral Palsy, Seizure Psychiatric History: Reports: ADHD, Other (See Below) Other Psychiatric History: JOLEEN-MCDERMID SYNDROME, MODERATE MILD RETARDATION, HIGH PAIN TOLERANCE Endocrine/Metabolic History: Reports: Osteoporosis Hematologic History: Reports: Anemia Dermatologic History: Reports: None - Past Surgical History HEENT Surgical History: Reports: Oral Surgery Cardiovascular Surgical History: Reports: None GI Surgical History: Reports: Hernia Repair/Other Other GI Surgeries/Procedures: INGUINAL Male Surgical History: Reports: Other (See Below) Other Male Surgeries/Procedures: right hydrocele repair Endocrine Surgical History: Reports: None Neurological Surgical History: Reports: None Musculoskeletal Surgical History: Reports: None Dermatological Surgical History: Reports: Other (See Below) Social & Family History - Family History Family Medical History: No Pertinent Family History - Caffeine Use Caffeine Use: Reports: None H&P Review of Systems - Review of Systems: Review Of Systems: Unable To Obtain Reason Not Obtained: patient is not able to communicate Exam - Exam Exam: See Below - Vital Signs Vital Signs: Last Vital Signs Temp 98.7 F 05/21/21 11:24 Pulse 91 05/21/21 11:24 Resp 20 05/21/21 11:24 BP 130/81 05/21/21 11:24 Pulse Ox 95 05/21/21 11:24 Weight: 178 lb 4.8 oz - Exam General: Alert, Cooperative. No: Mild Distress HEENT: Conjunctiva Clear, Mucosa Moist & [place], Posterior Pharynx Clear Neck: Supple, Trachea Midline Lungs: Clear to Auscultation, Normal Respiratory Effort Cardiovascular: Regular Rate, Regular Rhythm GI/Abdominal Exam: Normal Bowel Sounds, Soft, No Organomegaly, No Distention Extremities: Pedal Edema (1+ edema to left lower leg), Increased Warmth (left foot extending up lower leg), Redness (left foot extending up lower leg) Skin: Other (increased warmth to left lower leg/foot). No: Ecchymosis, Wound Neuro Extensive - Mental Status: Alert, Normal Cognition Neuro Extensive - Motor, Sensory, Reflexes: Normal Gait Psychiatric: Alert, Normal Affect, Normal Mood - Patient Data Lab Results Last 24 hrs: Laboratory Results - last 24 hr 05/21/21 05/21/21 05/21/21 Range/Units 11:42 11:42 11:42 WBC 10.3 (4.0-11.0) 10^3/uL RBC 4.48 L (4.50-6.00) x10^6/uL Hgb 12.8 L (14.0-18.0) g/dL Hct 37.9 L (42.0-52.0) % MCV 84.6 (83.0-97.0) fL MCH 28.6 (27.0-32.0) pg MCHC 33.8 (32.0-36.0) g/dL RDW Coeff of Korey 13.6 (11.0-15.0) % Plt Count 176 (150-400) 10^3/uL Immature Gran % (Auto) 0.2 (0.0-4.9) % Neut % (Auto) 82.7 H (41-71) % Lymph % (Auto) 6.1 L (24-44) % [place] % (Auto) 10.6 H (0-10) % Eos % (Auto) 0.3 (0-6) % Baso % (Auto) 0.1 (0-1) % Neut # (Auto) 8.50 H (1.80-8.00) x10^3/uL Lymph # (Auto) 0.63 (0.60-5.00) 10^3/uL [place] # (Auto) 1.09 (0.00-1.50) 10^3/uL Eos # (Auto) 0.03 (0.00-1.50) 10^3/uL Baso # (Auto) 0.01 (0.00-0.50) 10^3/uL Immature Gran # (Auto) 0.02 (0.00-0.49) 10^3/uL Sodium 142 (136-145) mEq/L Potassium 3.5 (3.5-5.0) mEq/L Chloride 103 (98-106) mEq/L Carbon Dioxide 28 (21-32) mmol/L BUN 19 H (7-18) mg/dL Creatinine 1.0 (0.7-1.3) mg/dL Est Cr Clr Drug Dosing 93.10 mL/min Estimated GFR (MDRD) > 60 (>=60) mL/min Glucose 103 H (75-99) mg/dL Lactic Acid 1.1 (0.4-2.0) mmol/L Calcium 8.4 (8.4-10.1) mg/dL C-Reactive Protein 21.9 H (0.2-0.8) mg/dL Result Diagrams: 05/21/21 11:42 05/21/21 11:42 Sepsis Event Note - Focused Exam Vital Signs: Vital Signs Temp Pulse Resp BP Pulse Ox 05/21/21 11:24 98.7 F 91 20 130/81 95 05/21/21 10:05 98.7 F 91 20 130/81 95 - Problem List (1) Cellulitis SNOMED Code(s): 131688990 ICD Code: L03.90 - CELLULITIS, UNSPECIFIED Status: Acute Priority: High Current Visit: No Qualifiers: Site of cellulitis: extremity Site of cellulitis of extremity: lower extremity Laterality: left Qualified Code(s): L03.116 - Cellulitis of left lower limb (2) Mental handicap SNOMED Code(s): 571329393 ICD Code: F79 - UNSPECIFIED INTELLECTUAL DISABILITIES Status: Chronic Current Visit: No Problem List Initiated/Reviewed/Updated: Yes Orders Last 24hrs: Active Orders 24 hr Category Date Time Status Patient Status [ADT] Routine ADT 05/21/21 11:24 Active Oxygen Therapy [RC] .PRN Care 05/21/21 11:24 Active Up With Assistance [RC] .PRN Care 05/21/21 11:23 Active Vital Signs [RC] 0000,0400,0800,1200,1600,2000 Care 05/21/21 11:24 Active Regular Diet [DIET] Diet 05/21/21 Lunch Active BASIC METABOLIC PANEL,BMP [CHEM] AM Lab 05/22/21 05:11 Ordered BASIC METABOLIC PANEL,BMP [CHEM] AM Lab 05/23/21 05:11 Ordered CBC WITH AUTO DIFF [HEME] AM Lab 05/22/21 05:11 Ordered CBC WITH AUTO DIFF [HEME] AM Lab 05/23/21 05:11 Ordered CRP [C-REACTIVE PROTEIN] [CHEM] AM Lab 05/22/21 05:11 Ordered CRP [C-REACTIVE PROTEIN] [CHEM] AM Lab 05/23/21 05:11 Ordered VANCOMYCIN TROUGH [CHEM] Timed Lab 05/22/21 11:30 Ordered Acetaminophen [TylenoL] Med 05/21/21 11:23 Active 650 mg PO Q4H PRN Iron Ps Complex/B12/Folic Acid [Ferrex 150 Forte Med 05/21/21 20:00 Ordered Capsule] 150 mg PO QPM Sodium Chloride 0.9% [Saline Flush] Med 05/21/21 11:23 Active 10 ml FLUSH ASDIRECTED PRN Vancomycin 1.25 gm Med 05/21/21 12:25 Active Sodium Chloride 0.9% [Normal Saline (AdvBag)] 250 ml IV Q8H carBAMazepine [TEGretol Tab] Med 05/21/21 12:00 Active 100 mg PO 1200 carBAMazepine [TEGretol Tab] Med 05/21/21 20:00 Active 150 mg PO QPM carBAMazepine [TEGretol Tab] Med 05/22/21 08:00 Active 200 mg PO QAM Saline Lock Insert [OM.PC] Routine Oth 05/21/21 11:23 Ordered Resuscitation Status Routine Resus Stat 05/21/21 11:23 Ordered Medication Orders Acetaminophen (Acetaminophen 325 Mg Tab) 650 mg PO Q4H PRN PRN Reason: Pain (Mild 1-3)/fever Carbamazepine (Carbamazepine 200 Mg Tab) 100 mg PO 1200 EYAD Last Admin: 05/21/21 12:24 Dose: 100 mg Documented by: TRESA Carbamazepine (Carbamazepine 200 Mg Tab) 150 mg PO QPM EYAD Carbamazepine (Carbamazepine 200 Mg Tab) 200 mg PO QAM EYAD Vancomycin HCl 1.25 gm/ Sodium (Chloride) 250 mls @ 167.007 mls/hr IV Q8H EYAD Non-Formulary Medication (Iron Ps Complex/B12/Folic Acid [Ferrex 150 Forte Capsule]) 150 mg PO QPM EYAD Sodium Chloride (Sodium Chloride 0.9% 10 Ml Syringe) 10 ml FLUSH ASDIRECTED PRN PRN Reason: Keep Vein Open Assessment/Plan Comment:: WBC did improved today along with Neutrophils. CRP has increased to 21. Lactic acid is normal. Patient does have history of cellulitis, which does appear to be consistent today as well. The left lower extremity does show a cellulitis and will initiate Vancomycin today, pharmacy to dose. Will repeat labs in the am. Staff encouraged to keep feet elevated. - Mortality Measure Prognosis:: Good
[2021-05-21] MEDS: Acetaminophen 325 MG Tab PO PRN (14:21)
[2021-05-21] MEDS: cefTRIAXone 1 GM Vial IVPUSH SCH (16:48)
[2021-05-21] MEDS: Iron Polysaccharides Complex 150 MG Cap PO SCH (19:46)
[2021-05-21] MEDS ORDERED: Acetaminophen 325 MG Tab PO SCH (20:00)
[2021-05-22] MEDS: Acetaminophen 325 MG Tab PO PRN (00:21)
[2021-05-22 07:30] LABS: CHLORIDE,CL 107 mEq/L (98-106); SODIUM,NA 145 mEq/L (136-145)
[2021-05-22] MEDS: carBAMazepine 200 MG Tab PO SCH ×3 (07:41→20:03)
--- NOTE | 2021-05-22 08:18 | PCM.PN ---
- General Info Date of Service: 05/22/21 Admission Dx/Problem (Free Text): Admission Diagnosis/Problem Admission Diagnosis/Problem Cellulitis of foot Subjective Update: Patient is sitting upright, alert, interacting with grandmother. Had fever of 101.3 last evening. Afebrile this am. Has been sleeping well. Appetite is good. Grandmother reports does have good pain tolerance so is difficult to determine if having excess pain. Functional Status: Reports: Tolerating Diet - Review of Systems General: Reports: Fever, Malaise, Other (obtained per grandmother, does not converse. States yes and bye.) Pulmonary: Denies: Shortness of Breath, Cough Cardiovascular: Reports: Edema (chronic lymphedema, grandmother relates appears better today) Gastrointestinal: Denies: Abdominal Pain, Nausea, Vomiting Genitourinary: Reports: Incontinence Skin: Reports: Other (redness to left leg) - Patient Data Vitals - Most Recent: Last Vital Signs Temp 98.8 F 05/22/21 04:00 Pulse 82 05/22/21 04:00 Resp 18 05/22/21 04:00 BP 129/69 05/22/21 04:00 Pulse Ox 97 05/22/21 04:00 Weight - Most Recent: 178 lb 4.8 oz Lab Results Last 24 Hours: Laboratory Results - last 24 hr 05/21/21 05/21/21 05/21/21 Range/Units 11:42 11:42 11:42 WBC 10.3 (4.0-11.0) 10^3/uL RBC 4.48 L (4.50-6.00) x10^6/uL Hgb 12.8 L (14.0-18.0) g/dL Hct 37.9 L (42.0-52.0) % MCV 84.6 (83.0-97.0) fL MCH 28.6 (27.0-32.0) pg MCHC 33.8 (32.0-36.0) g/dL RDW Coeff of Korey 13.6 (11.0-15.0) % Plt Count 176 (150-400) 10^3/uL Immature Gran % (Auto) 0.2 (0.0-4.9) % Neut % (Auto) 82.7 H (41-71) % Lymph % (Auto) 6.1 L (24-44) % Otero % (Auto) 10.6 H (0-10) % Eos % (Auto) 0.3 (0-6) % Baso % (Auto) 0.1 (0-1) % Neut # (Auto) 8.50 H (1.80-8.00) x10^3/uL Lymph # (Auto) 0.63 (0.60-5.00) 10^3/uL Otero # (Auto) 1.09 (0.00-1.50) 10^3/uL Eos # (Auto) 0.03 (0.00-1.50) 10^3/uL Baso # (Auto) 0.01 (0.00-0.50) 10^3/uL Immature Gran # (Auto) 0.02 (0.00-0.49) 10^3/uL Sodium 142 (136-145) mEq/L Potassium 3.5 (3.5-5.0) mEq/L Chloride 103 (98-106) mEq/L Carbon Dioxide 28 (21-32) mmol/L BUN 19 H (7-18) mg/dL Creatinine 1.0 (0.7-1.3) mg/dL Est Cr Clr Drug Dosing 93.10 mL/min Estimated GFR (MDRD) > 60 (>=60) mL/min Glucose 103 H (75-99) mg/dL Lactic Acid 1.1 (0.4-2.0) mmol/L Calcium 8.4 (8.4-10.1) mg/dL C-Reactive Protein 21.9 H (0.2-0.8) mg/dL 05/22/21 05/22/21 Range/Units 07:05 07:05 WBC 8.1 (4.0-11.0) 10^3/uL RBC 4.54 (4.50-6.00) x10^6/uL Hgb 12.9 L (14.0-18.0) g/dL Hct 38.9 L (42.0-52.0) % MCV 85.7 (83.0-97.0) fL MCH 28.4 (27.0-32.0) pg MCHC 33.2 (32.0-36.0) g/dL RDW Coeff of Korey 13.6 (11.0-15.0) % Plt Count 179 (150-400) 10^3/uL Immature Gran % (Auto) 0.4 (0.0-4.9) % Neut % (Auto) 74.6 H (41-71) % Lymph % (Auto) 10.9 L (24-44) % Otero % (Auto) 13.4 H (0-10) % Eos % (Auto) 0.6 (0-6) % Baso % (Auto) 0.1 (0-1) % Neut # (Auto) 6.07 (1.80-8.00) x10^3/uL Lymph # (Auto) 0.89 (0.60-5.00) 10^3/uL Otero # (Auto) 1.09 (0.00-1.50) 10^3/uL Eos # (Auto) 0.05 (0.00-1.50) 10^3/uL Baso # (Auto) 0.01 (0.00-0.50) 10^3/uL Immature Gran # (Auto) 0.03 (0.00-0.49) 10^3/uL Sodium 145 (136-145) mEq/L Potassium 3.8 (3.5-5.0) mEq/L Chloride 107 H (98-106) mEq/L Carbon Dioxide 27 (21-32) mmol/L BUN 13 (7-18) mg/dL Creatinine 0.8 (0.7-1.3) mg/dL Est Cr Clr Drug Dosing 116.38 mL/min Estimated GFR (MDRD) > 60 (>=60) mL/min Glucose 102 H (75-99) mg/dL Lactic Acid (0.4-2.0) mmol/L Calcium 7.9 L (8.4-10.1) mg/dL C-Reactive Protein 20.1 H (0.2-0.8) mg/dL Med Orders - Current: Current Medications Acetaminophen (Acetaminophen 325 Mg Tab) 650 mg PO Q4H PRN PRN Reason: Pain (Mild 1-3)/fever Last Admin: 05/22/21 00:21 Dose: 650 mg Documented by: Carbamazepine (Carbamazepine 200 Mg Tab) 100 mg PO 1200 EYAD Last Admin: 05/21/21 12:24 Dose: 100 mg Documented by: Carbamazepine (Carbamazepine 200 Mg Tab) 150 mg PO QPM EYAD Last Admin: 05/21/21 19:46 Dose: 150 mg Documented by: Carbamazepine (Carbamazepine 200 Mg Tab) 200 mg PO QAM [facility] Last Admin: 05/22/21 07:41 Dose: 200 mg Documented by: Ceftriaxone Sodium (Ceftriaxone 1 Gm Vial) 1 gm IVPUSH Q24H [facility] Last Admin: 05/21/21 16:48 Dose: 1 gm Documented by: Vancomycin HCl 1.25 gm/ Sodium (Chloride) 250 mls @ 167.007 mls/hr IV Q8H [facility] Last Admin: 05/22/21 04:19 Dose: 167.007 mls/hr Documented by: Polysaccharide Iron Complex (Iron Polysaccharides Complex 150 Mg Cap) 150 mg PO QPM [facility] Last Admin: 05/21/21 19:46 Dose: 150 mg Documented by: Sodium Chloride (Sodium Chloride 0.9% 10 Ml Syringe) 10 ml FLUSH ASDIRECTED PRN PRN Reason: Keep Vein Open Discontinued Medications Acetaminophen (Acetaminophen 325 Mg Tab) 650 mg PO BID [facility] Vancomycin HCl 1.25 gm/ Sodium (Chloride) 250 mls @ 167 mls/hr IV Q8H [facility] Last Admin: 05/21/21 13:12 Dose: Not Given Documented by: Vancomycin HCl (Pharmacy To Dose - Vancomycin) 1 dose .XX ASDIRECTED [facility] - Exam General: Alert, Cooperative, No Acute Distress HEENT: Mucous Membr. Moist/[place] Neck: Supple Lungs: Clear to Auscultation, Normal Respiratory Effort Cardiovascular: Regular Rate, Regular Rhythm GI/Abdominal Exam: Normal Bowel Sounds, Soft, Non-Tender Extremities: Other (left leg redness is improved since yesterday marking /evaluation. Mildly warm. ) Skin: Warm, Dry Wound/Incisions: Erythema Improving - Patient Data Lab Results Last 24 hrs: Laboratory Results - last 24 hr 05/21/21 05/21/21 05/21/21 Range/Units 11:42 11:42 11:42 WBC 10.3 (4.0-11.0) 10^3/uL RBC 4.48 L (4.50-6.00) x10^6/uL Hgb 12.8 L (14.0-18.0) g/dL Hct 37.9 L (42.0-52.0) % MCV 84.6 (83.0-97.0) fL MCH 28.6 (27.0-32.0) pg MCHC 33.8 (32.0-36.0) g/dL RDW Coeff of Korey 13.6 (11.0-15.0) % Plt Count 176 (150-400) 10^3/uL Immature Gran % (Auto) 0.2 (0.0-4.9) % Neut % (Auto) 82.7 H (41-71) % Lymph % (Auto) 6.1 L (24-44) % Otero % (Auto) 10.6 H (0-10) % Eos % (Auto) 0.3 (0-6) % Baso % (Auto) 0.1 (0-1) % Neut # (Auto) 8.50 H (1.80-8.00) x10^3/uL Lymph # (Auto) 0.63 (0.60-5.00) 10^3/uL Otero # (Auto) 1.09 (0.00-1.50) 10^3/uL Eos # (Auto) 0.03 (0.00-1.50) 10^3/uL Baso # (Auto) 0.01 (0.00-0.50) 10^3/uL Immature Gran # (Auto) 0.02 (0.00-0.49) 10^3/uL Sodium 142 (136-145) mEq/L Potassium 3.5 (3.5-5.0) mEq/L Chloride 103 (98-106) mEq/L Carbon Dioxide 28 (21-32) mmol/L BUN 19 H (7-18) mg/dL Creatinine 1.0 (0.7-1.3) mg/dL Est Cr Clr Drug Dosing 93.10 mL/min Estimated GFR (MDRD) > 60 (>=60) mL/min Glucose 103 H (75-99) mg/dL Lactic Acid 1.1 (0.4-2.0) mmol/L Calcium 8.4 (8.4-10.1) mg/dL C-Reactive Protein 21.9 H (0.2-0.8) mg/dL 05/22/21 05/22/21 Range/Units 07:05 07:05 WBC 8.1 (4.0-11.0) 10^3/uL RBC 4.54 (4.50-6.00) x10^6/uL Hgb 12.9 L (14.0-18.0) g/dL Hct 38.9 L (42.0-52.0) % MCV 85.7 (83.0-97.0) fL MCH 28.4 (27.0-32.0) pg MCHC 33.2 (32.0-36.0) g/dL RDW Coeff of Korey 13.6 (11.0-15.0) % Plt Count 179 (150-400) 10^3/uL Immature Gran % (Auto) 0.4 (0.0-4.9) % Neut % (Auto) 74.6 H (41-71) % Lymph % (Auto) 10.9 L (24-44) % Otero % (Auto) 13.4 H (0-10) % Eos % (Auto) 0.6 (0-6) % Baso % (Auto) 0.1 (0-1) % Neut # (Auto) 6.07 (1.80-8.00) x10^3/uL Lymph # (Auto) 0.89 (0.60-5.00) 10^3/uL Otero # (Auto) 1.09 (0.00-1.50) 10^3/uL Eos # (Auto) 0.05 (0.00-1.50) 10^3/uL Baso # (Auto) 0.01 (0.00-0.50) 10^3/uL Immature Gran # (Auto) 0.03 (0.00-0.49) 10^3/uL Sodium 145 (136-145) mEq/L Potassium 3.8 (3.5-5.0) mEq/L Chloride 107 H (98-106) mEq/L Carbon Dioxide 27 (21-32) mmol/L BUN 13 (7-18) mg/dL Creatinine 0.8 (0.7-1.3) mg/dL Est Cr Clr Drug Dosing 116.38 mL/min Estimated GFR (MDRD) > 60 (>=60) mL/min Glucose 102 H (75-99) mg/dL Lactic Acid (0.4-2.0) mmol/L Calcium 7.9 L (8.4-10.1) mg/dL C-Reactive Protein 20.1 H (0.2-0.8) mg/dL Result Diagrams: 05/22/21 07:05 05/22/21 07:05 Sepsis Event Note - Evaluation Sepsis Screening Result: No Definite Risk - Focused Exam Vital Signs: Vital Signs Temp Pulse Resp BP Pulse Ox 05/22/21 04:00 98.8 F 82 18 129/69 97 05/22/21 00:00 101.3 F H 81 18 137/81 97 - Problem List & Annotations (1) Cellulitis SNOMED Code(s): 474470871 Code(s): L03.90 - CELLULITIS, UNSPECIFIED Status: Acute Priority: High Current Visit: Yes Qualifiers: Site of cellulitis: extremity Site of cellulitis of extremity: lower extremity Laterality: left Qualified Code(s): L03.116 - Cellulitis of left lower limb (2) Mental handicap SNOMED Code(s): 726065874 Code(s): F79 - UNSPECIFIED INTELLECTUAL DISABILITIES Status: Chronic Priority: High Current Visit: Yes - Problem List Review Problem List Initiated/Reviewed/Updated: Yes - Assessment Assessment:: Cellulitis to left lower extremity - Plan Plan:: WBC did improved today along with Neutrophils. CRP has increased to 21. Lactic a south is normal. Patient does have history of cellulitis, which does appear to be consistent today as well. The left lower extremity does show a cellulitis and will initiate Vancomycin today, pharmacy to dose. Will repeat labs in the am. Staff encouraged to keep feet elevated. 05-22-2021 WBC noted to be stable at 8.1. CRP only slightly improved to 20.1. Other labs unremarkable. Leg is improving. Continue with current IV antibiotics until sensitivities return. Repeat labs in am.
[2021-05-22] MEDS: cefTRIAXone 1 GM Vial IVPUSH SCH (16:30)
[2021-05-22] MEDS ORDERED: Sodium Chloride 0.9% 50 ML IV ONE (20:00)
[2021-05-22] MEDS: Iron Polysaccharides Complex 150 MG Cap PO SCH (20:03)
[2021-05-22] MEDS: Ampicillin 1 GM Vial IVPUSH SCH (20:08)
[2021-05-23] MEDS: Ampicillin 1 GM Vial IVPUSH SCH ×3 (00:17→07:49)
[2021-05-23 07:48] LABS: CHLORIDE,CL 108 mEq/L (98-106); SODIUM,NA 146 mEq/L (136-145)
[2021-05-23] MEDS: carBAMazepine 200 MG Tab PO SCH (07:49)
[2021-05-23 07:52] VITALS: BP 113/70; PULSE 67
--- NOTE | 2021-05-23 10:47 | DISCH ---
ADMISSION DIAGNOSES: 1. Cellulitis. 2. Mental handicap. DISCHARGE DIAGNOSIS: 1. ACUTE LEFT LOWER EXTREMITY CELLULITIS. 2. SEPSIS WITH POSITIVE BLOOD CULTURES SECONDARY TO ENTEROCOCCUS FAECALIS. 3. MENTAL HANDICAP. 4. SEIZURE DISORDER. HISTORY: The patient is a 30-year-old male who is I believe a [address] [place] [address] resident. He presented with spiking fevers with an unknown etiology, was seen in the clinic, started on some outpatient Ceftin. Ultimately, he was then re- evaluated I believe later that night with left lower extremity cellulitis, was admitted by Juanjo Vanegas and started on appropriate cares including vancomycin. HOSPITAL COURSE: The patient's blood cultures were quickly positive for gram- positive cocci and hence vancomycin. The blood cultures had been done as an outpatient in the clinic. By the time he was seen and evaluated, those were back. He was also started on ampicillin with this. Over the 48 hours the patient's admission, his temperatures were down. He had a T-max of 101.3, but has been afebrile for well over 24 hours. His leg has gotten markedly better with less swelling, almost complete resolution of erythema, which started about the mid byrne, went down through the foot. His white blood cell count is back to normal. His CRP went from 21.9 to 11.1. Blood culture report came back, positive for Enterococcus faecalis, sensitive to ampicillin, and he will go home on an appropriate course of amoxicillin for the next 10 days. He will see Juanjo Vanegas in followup in the next week for recheck including the lab including a CBC panel and CRP. COMPLICATIONS: During the stay were none. CONSULTATIONS: None. DISPOSITION: Discharged home under the care of [address] [place] [address] staff. SHARITA/TIERA /[id number]
== END 2021-05-23 11:02 | disposition home or self-care (01) | DRG 872 ==
LOC: CC.MS 09:55 → UNDOADMIN 09:55 → CC.MS 11:24
PROVIDERS: ADMIT Physician Assistant Medical; ATTEND Family Medicine
DX: A41.81 Sepsis due to Enterococcus (principal); L03.116 Cellulitis of left lower limb; G40.909 Epilepsy, unspecified, not intractable, without status epilepticus; H54.7 Unspecified visual loss; D64.9 Anemia, unspecified; F79 Unspecified intellectual disabilities; Z88.8 Allergy status to other drugs, medicaments and biological substances; Z91.09 Other allergy status, other than to drugs and biological substances; Z79.899 Other long term (current) drug therapy
CPT/HCPCS: 36415; 80048; 80202; 83605; 85025; 86140; A9270-GY; J0290; J0696; J3370; J7050

== ENCOUNTER → 2021-10-17 | Day surgery (SDC) | payer MEDICAID ==
[~2021-10-17] MED LIST changes: -Dexamethasone 4 MG/ML 5 ML MDV IV ONE; +Lactated Ringers 1,000 ML IV SCH; -Ondansetron 4 MG/2 ML SDV IV ONE; +Ondansetron 4 MG/2 ML SDV ONE; -Propofol 200 MG/20 ML SDV IV ONE; +Propofol 200 MG/20 ML SDV ONE; -Succinylcholine 200 MG/10 ML MDV IV ONE; +Succinylcholine 200 MG/10 ML MDV ONE; -fentaNYL 100 MCG/2 ML SDV IV ONE; +fentaNYL 100 MCG/2 ML SDV ONE
[2021-10-17 13:03] VITALS: PULSE 89
[2021-10-18 14:27] VITALS: BP 143/98
== END ==
LOC: CC.SDS 08:32
PROVIDERS: ATTEND Dentist General Practice
DX: K02.9 Dental caries, unspecified (principal); Z88.8 Allergy status to other drugs, medicaments and biological substances; Z79.899 Other long term (current) drug therapy; Z98.890 Other specified postprocedural states
CPT/HCPCS: 00170; J0330; J2405; J2704; J3010; J7120

== ENCOUNTER → 2021-12-12 | Day surgery (SDC) | payer MEDICAID ==
[~2021-12-12] MED LIST changes: +Oxymetazoline 0.05% Nasal Spray 30 ML Bottle ONE
[2021-12-12 10:08] VITALS: BP 137/78; PULSE 86
== END ==
LOC: CC.SDS 06:33
PROVIDERS: ATTEND Dentist General Practice
DX: K06.8 Other specified disorders of gingiva and edentulous alveolar ridge (principal); H91.90 Unspecified hearing loss, unspecified ear; Z88.0 Allergy status to penicillin; Z91.048 Other nonmedicinal substance allergy status; Z98.890 Other specified postprocedural states; Z79.899 Other long term (current) drug therapy
CPT/HCPCS: 00170; A9270-GY; J0330; J2405; J2704; J3010; J7120

== ENCOUNTER → 2023-02-12 | Day surgery (SDC) | payer MEDICAID ==
[~2023-02-12] MED LIST changes: -Lactated Ringers 1,000 ML IV SCH; -Oxymetazoline 0.05% Nasal Spray 30 ML Bottle ONE; -fentaNYL 100 MCG/2 ML SDV ONE; +fentaNYL 50 MCG/ML SDV ONE
[2023-02-12] MEDS: Lactated Ringers 1,000 ML IV SCH (09:08)
[2023-02-12 14:52] VITALS: BP 135/103; PULSE 79
== END ==
LOC: CC.SDS 08:34
PROVIDERS: ATTEND Dentist General Practice
DX: K02.9 Dental caries, unspecified (principal); N43.3 Hydrocele, unspecified; J01.00 Acute maxillary sinusitis, unspecified; H52.209 Unspecified astigmatism, unspecified eye; D64.9 Anemia, unspecified; F90.9 Attention-deficit hyperactivity disorder, unspecified type; Z91.048 Other nonmedicinal substance allergy status; Z88.8 Allergy status to other drugs, medicaments and biological substances; Z79.899 Other long term (current) drug therapy; Z98.818 Other dental procedure status
CPT/HCPCS: 00170; J0330; J2405; J2704; J3010; J3490; J7120

== ENCOUNTER 2024-04-27 06:50 | Day surgery (SDC) | payer MEDICAID ==
[2024-04-27] MEDS: Lactated Ringers 1,000 ML IV SCH (07:05)
[2024-04-27] MEDS ORDERED: Propofol 200 MG/20 ML SDV ONE (07:45)
[2024-04-27] MEDS ORDERED: Lidocaine 2% Jelly 10 ML Urojet ONE (07:45)
[2024-04-27] MEDS ORDERED: Ondansetron 4 MG/2 ML SDV ONE (07:45)
[2024-04-27] MEDS ORDERED: Rocuronium 50 MG/5 ML Vial ONE (07:45)
[2024-04-27] MEDS ORDERED: Oxymetazoline 0.05% Nasal Spray 30 ML Bottle ONE (07:45)
[2024-04-27] MEDS ORDERED: fentaNYL 50 MCG/ML SDV ONE ×2 (07:45)
[2024-04-27] MEDS ORDERED: Lidocaine 2% 20 ML MDV ONE (07:45)
[2024-04-27] MEDS ORDERED: Glycopyrrolate 0.2 MG/ML SDV ONE ×2 (07:45)
[2024-04-27] MEDS ORDERED: Neostigmine Methylsulfate 10 MG/10 ML MDV ONE (07:45)
[2024-04-27 09:40] VITALS: PULSE 70
[2024-04-27 11:09] VITALS: BP 143/111
== END 2024-04-27 09:57 | disposition home or self-care (01) ==
LOC: CC.SDS 06:50
PROVIDERS: ATTEND Dentist General Practice
DX: K02.9 Dental caries, unspecified (principal); Z91.048 Other nonmedicinal substance allergy status; Z88.8 Allergy status to other drugs, medicaments and biological substances
CPT/HCPCS: 00170; A9270-GY; J2405; J2704; J2710; J3010; J3490; J7120